=== PATIENT | male | born 1940 | race Caucasian/White ===

== ENCOUNTER 2016-05-02 07:51 | Inpatient (IN) | payer MEDICARE ==
--- NOTE | 2016-05-02 08:14 | ER Document Report ---
ED Syncope and Near Syncope - General Mode of Arrival: Medic Information source: Patient TRAVEL OUTSIDE OF THE [place] IN LAST 30 DAYS: No - HPI Patient complains to provider of: Fainting Symptoms prior to episode: None Current symptoms: None/feels back to normal <LIZ BLACK - Last Filed: 05/02/16 13:12> <JOELLEN AGRAWAL - Last Filed: 05/02/16 13:45> - General Chief Complaint: Low Blood Sugar Stated Complaint: POSSIBLE SYNCOPE Time Seen by Provider: 05/02/16 08:03 Notes: Patient is a 75 year old male that presents to the emergency department today with complaints of "passing out" multiple times prior to arrival. Patient states he is "sitting on his big chair" usually when this happens. Patient states that he "blacks out" and does not remember anything that occurs during these episodes. Patient is on xarelto. Patient adds that he has been having frequent episodes of diarrhea and vomiting recently. Patient denies a history of any seizure disorders. (LIZ BLACK) - Related Data Allergies/Adverse Reactions: No Known Allergies Allergy (Verified 01/13/14 23:37) Past Medical History - General Information source: Patient, [facility] Records - Social History Smoking Status: Unknown if Ever Smoked Cigarette use (# per day): No Frequency of alcohol use: None Drug Abuse: None Lives with: Alone Family History: Other - Past Medical History Cardiac Medical History: Reports: Hx Atrial Fibrillation, Hx Congestive Heart Failure, Hx Coronary Artery Disease, Hx Heart Attack - Last one 3-4 years ago, Hx Hypercholesterolemia, Hx Hypertension Pulmonary Medical History: Reports: Hx COPD Neurological Medical History: Reports: Hx Cerebrovascular Accident Endocrine Medical History: Reports: Hx Diabetes Mellitus Type 2 Musculoskeltal Medical History: Reports Hx Arthritis Past Surgical History: Reports: Hx Cardiac Catheterization - stent, Hx Cardiac Surgery - open heart, Hx Coronary Artery Bypass Graft - Immunizations Hx Diphtheria, Pertussis, Tetanus Vaccination: Yes Hx Pneumococcal Vaccination: 05/01/09 <LIZ BLACK - Last Filed: 05/02/16 13:12> Review of Systems - Review of Systems Constitutional: No symptoms reported EENT: No symptoms reported Cardiovascular: See HPI, Syncope Respiratory: No symptoms reported Gastrointestinal: See HPI, Diarrhea, Vomiting Genitourinary: No symptoms reported Male Genitourinary: No symptoms reported Musculoskeletal: No symptoms reported Skin: No symptoms reported Hematologic/Lymphatic: No symptoms reported Neurological/Psychological: denies: Seizure -: Yes All other systems reviewed and negative <SOFIALIZ - Last Filed: 05/02/16 13:12> Physical Exam - General General appearance: Appears well, Alert In distress: None - HEENT Head: Normocephalic, Atraumatic Eyes: Normal - Respiratory Respiratory status: No respiratory distress Chest status: Nontender Breath sounds: Normal - Cardiovascular Rhythm: Regular Heart sounds: Normal auscultation Murmur: No - Abdominal Inspection: Normal Distension: No distension - Rectal Tenderness: No Stool: See lab result, Other - no gross blood Hemorrhoids: External - 6 oclock position - Extremities General upper extremity: Normal inspection, Nontender, Normal ROM. No: Edema General lower extremity: Normal inspection, Nontender, Normal ROM. No: Edema - Neurological Neuro grossly intact: Yes Cognition: Normal Orientation: AAOx4 - Psychological Associated symptoms: Normal affect, Normal mood - Skin Skin Temperature: Warm Skin Moisture: Dry Skin Color: Normal <JERROD BLACKON - Last Filed: 05/02/16 13:12> Course - Laboratory Result Diagrams: 05/02/16 08:59 05/02/16 08:59 <JERROD BLACKON - Last Filed: 05/02/16 13:12> - Laboratory Result Diagrams: 05/02/16 08:59 05/02/16 08:59 <JOELLEN AGRAWAL - Last Filed: 05/02/16 13:45> - Re-evaluation Re-evalutation: 05/02/16 13:42 I personally performed the services described in the documentation, reviewed and edited the documentation which was dictated to my scribe in my presence, and it accurately records my words and actions. Patient presented see marked department via EMS with the chief complaint of syncope. Patient states is primarily in a chair most of the time lives by himself. He says that nausea vomiting and diarrhea for the past couple days he said he'll just be sitting there and he'll have a passing out episode wake up in the chair he has not fallen to the ground denies any headache neck pain chest pain shortness of breath abdominal pain or flank pain on examination he is actually alert and oriented 3 however his chemistry came back with a blood glucose of 31 given amp of D50. Patient denies any neurological deficits no acute clinical concerns for [place] PE or dissection. He does have acute renal failure dehydration and urinary tract infection for which she was given Rocephin IV fluids. Patient is in stable A. fib no strokelike symptoms or cardiac event noted currently. Patient edited the hospital further assessment and evaluation (JOELLEN AGRAWAL) - Vital Signs Vital signs: Temp Pulse Resp BP Pulse Ox 14 107/87 H 100 05/02/16 10:01 05/02/16 10:01 05/02/16 10:01 (JOELLEN AGRAWAL) - Laboratory Laboratory results interpreted by me: 05/02/16 05/02/16 05/02/16 08:59 08:59 10:40 RBC 3.85 L Hgb 12.4 L Hct 36.9 L RDW 17.8 H Seg Neutrophils % 79.8 H Lymphocytes % 11.2 L Sodium 145.1 H Potassium 3.1 L BUN 76 H Creatinine 2.40 H Est GFR ( Amer) 32 L Est GFR (Non-Af Amer) 27 L Glucose 38 L* Creatine Kinase 228 H Urine Blood SMALL H Ur Leukocyte Esterase LARGE H (JOELLEN AGRAWAL) Critical Care Note - Critical Care Note Total time excluding time spent on procedures (mins): 45 <JOELLEN AGRAWAL - Last Filed: 05/02/16 13:45> Discharge <LIZ BLACK - Last Filed: 05/02/16 13:12> - Discharge Admitting Provider: Hospitalist Unit Admitted: Telemetry <JOELLEN AGRAWAL - Last Filed: 05/02/16 13:45> - Discharge Clinical Impression: Syncopal episodes Qualifiers: Syncope type: unspecified Qualified Code(s): R55 - Syncope and collapse Acute renal failure Qualifiers: Acute renal failure type: unspecified Qualified Code(s): N17.9 - Acute kidney failure, unspecified UTI (urinary tract infection) Qualifiers: Urinary tract infection type: site unspecified Hematuria presence: without hematuria Qualified Code(s): N39.0 - Urinary tract infection, site not specified Condition: Stable Disposition: ADMITTED OBSERVATION Referrals: ML MARTINI MD [Primary Care Provider] - Follow up as needed Scribe Documentation - Scribe Written by Scribe:: Francoise Gorman, [id number] 05/02/2016 acting as scribe for :: Delfino <LIZ BLACK - Last Filed: 05/02/16 13:12>
[2016-05-02] MEDS ORDERED: NORMAL SALINE 1000 ML 1,000 ML IV ONE (08:35)
[2016-05-02 09:12] LABS: ABSOLUTE BASOPHILS # (AUTO) 0.1 10^3/uL (0.0-0.2); ABSOLUTE EOSINOPHILS # (AUTO) 0.1 10^3/uL (0.0-0.6); ABSOLUTE MONOCYTES (AUTO) 0.7 10^3/uL (0.1-1.4); ABSOLUTE NEUT (AUTO) 7.2 10^3/uL (1.7-8.2); BASOPHILS % (AUTO) 0.7 % (0-2); EOSINOPHILS % (AUTO) 0.7 % (0-6); HEMATOCRIT 36.9 % (37.9-51.0); HEMOGLOBIN 12.4 g/dL (13.5-17.0); HGB HCT DIFFERENCE 0.3; LYMPHOCYTES % (AUTO) 11.2 % (13-45); MEAN CORPUSCULAR HEMOGLOBIN 32.3 pg (27.0-33.4); MEAN CORPUSCULAR HGB CONC 33.7 g/dL (32.0-36.0); MEAN CORPUSCULAR VOLUME 96 fl (80-97); MONOCYTES % (AUTO) 7.6 % (3-13); RED BLOOD COUNT 3.85 10^6/uL (4.35-5.55); RED CELL DISTRIBUTION WIDTH 17.8 % (11.5-14.0); SEGMENTED NEUTROPHILS % (AUTO) 79.8 % (42-78)
--- NOTE | 2016-05-02 09:18 | EKG REPORT ---
SEVERITY:- ABNORMAL ECG - ATRIAL FIBRILLATION NONSPECIFIC INTRAVENTRICULAR CONDUCTION DELAY PROBABLE INFERIOR INFARCT, AGE INDETERMINATE : Confirmed by: Sruthi Elise 02-May-2016 09:18:38
[2016-05-02 09:36] LABS: ANION GAP 18 (5-19); BLOOD UREA NITROGEN 76 mg/dL (7-20); CALCIUM 8.7 mg/dL (8.4-10.2); CARBON DIOXIDE 24 mmol/L (22-30); CHLORIDE 103 mmol/L (98-107); CREATINE KINASE 228 U/L (55-170); POTASSIUM 3.1 mmol/L (3.6-5.0); SODIUM 145.1 mmol/L (137-145)
[2016-05-02 09:47] LABS: CREATINE KINASE MB 4.55 ng/mL (<4.55)
[2016-05-02 09:56] LABS: TROPONIN I 0.096 ng/mL
[2016-05-02 09:57] LABS: GLUCOSE 38 mg/dL (75-110)
[2016-05-02] MEDS ORDERED: DEXTROSE 50%-WATER 25 GM/50 ML DISP.SYRIN IV ONE ×2 (09:57→09:58)
[2016-05-02 10:55] LABS: APPEARANCE,URINE SLIGHTLY-CLOUDY; BILIRUBIN,URINE NEGATIVE (NEGATIVE); GLUCOSE, URINE NEGATIVE (NEGATIVE); KETONES,URINE NEGATIVE (NEGATIVE); LEUKOCYTE ESTERASE,URINE LARGE (NEGATIVE); NITRITE,URINE NEGATIVE (NEGATIVE); PROTEIN,URINE NEGATIVE (NEGATIVE); URINE SPECIFIC GRAVITY 1.011; UROBILINOGEN,URINE NEGATIVE mg/dL (<2.0)
[2016-05-02] MEDS ORDERED: CEFTRIAXONE INJ 1000 MG VIAL IM ONE (12:50)
[2016-05-02] MEDS ORDERED: DEXTROSE 40% GEL 15 GM TUBE PO PRN ×2 (13:43)
[2016-05-02] MEDS ORDERED: DEXTROSE 50%-WATER 25 GM/50 ML DISP.SYRIN IV PRN ×2 (13:43)
[2016-05-02] MEDS ORDERED: GLUCAGON,HUMAN RECOMB 1 MG INJ IM PRN (13:43)
[2016-05-02 15:05] LABS: ANION GAP 17 (5-19); BLOOD UREA NITROGEN 73 mg/dL (7-20); CALCIUM 8.4 mg/dL (8.4-10.2); CARBON DIOXIDE 24 mmol/L (22-30); CHLORIDE 104 mmol/L (98-107); CREATININE RESULT 2.15 mg/dL (0.52-1.25); MAGNESIUM 2.3 mg/dL (1.6-2.3); SODIUM 144.6 mmol/L (137-145)
[2016-05-02 15:18] LABS: GLUCOSE 36 mg/dL (75-110); POTASSIUM 2.9 mmol/L (3.6-5.0)
[2016-05-02] MEDS ORDERED: POTASSI CL 40 MEQ/D5-1/2NS 1L 1,000 ML IV PRN (16:09)
--- NOTE | 2016-05-02 17:14 | PDOC H&P ---
History of Present Illness Admission Date/PCP: 05/02/16 13:54 Joao REECE Patient complains of: Syncope History of Present Illness: LINDA WILLETT is a 75 year old male past medical history of non-insulin -dependent diabetes mellitus type II that presents to the emergency department today with complaints of "passing out" multiple times since Monday. According to the patient on Monday he had several episodes of watery diarrhea. After this he became profoundly weak. Patient stated that he had taken all of his medications as prescribed since that time. The patient states that he has had numerous episodes of complete loss of consciousness since then. Patient states he is "sitting on his big chair" usually when this happens. Patient states that he "blacks out" and does not remember anything that occurs during these episodes. Patient is on xarelto. Patient denies a history of any seizure disorder. Patient is on glipizide for diabetes and has continued to take this in spite of not having much oral intake in the last couple of days due to upset stomach. The patient was referred to the hospitalists for observation and management. Patient denies any recent change in his medications. MEDICATIONS: The medications listed in this document may have been auto- populated from previous contact and may not been verified or reconciled. This may not be an accurate reflection of the patient's home medication(s); however, authors are unable to edit or delete the medications listed in this document as "home medications". 05/02/16 05/02/16 08:59 08:59 Hgb 12.4 L Sodium 145.1 H Potassium 3.1 L Creatinine 2.40 H Glucose 38 L* 05/02/16 10:40 Urine Culture - Pending Clean Catch Midstream Past Medical History Cardiac Medical History: Reports: Atrial Fibrillation, Congestive Heart Failure - Systolic heart failure with a EF of 35%, Coronary Artery Disease, Myocardial Infarction - Last one 3-4 years ago, Hyperlipidema, Hypertension Pulmonary Medical History: Reports: Chronic Obstructive Pulmonary Disease (COPD) Neurological Medical History: Reports: Ischemic CVA Endocrine Medical History: Reports: Diabetes Mellitus Type 2 Renal/ Medical History: Reports: Chronic Kidney Disease Musculoskeltal Medical History: Reports: Arthritis Hematology: Reports: Anemia - Chronic disease Past Surgical History Past Surgical History: Reports: Cardiac Catheterization - stent 2009, Coronary Artery Bypass Graft, Orthopedic Surgery - Hand and wrist surgery Social History Information Source: Patient Occupation: Retired Lives with: Alone - Smoking Status: Former Smoker Frequency of Alcohol Use: None Hx Recreational Drug Use: No Hx Prescription Drug Abuse: No - Advance Directive Resuscitation Status: Full Code Surrogate healthcare decision maker:: Patient's surrogate decision maker is his friend and transactional attorney. Family History Family History: Reviewed & Not Pertinent, CAD, Other Parental Family History Reviewed: Yes Children Family History Reviewed: NA Sibling(s) Family History Reviewed.: NA Medication/Allergy Home Medications: Fluticasone/Salmeterol [Advair 250-50 Diskus 14 Dose/Diskus] 1 inh IH Q12H #1 03/11/13 Dutasteride [Avodart] 0.5 mg PO QHS 07/14/13 Fluticasone Propionate [Flonase] 2 spray NS DAILY 07/14/13 Gabapentin [Neurontin 300 mg Capsule] 300 mg PO Q12 07/14/13 Glipizide [Glucotrol 5 mg Tablet] 5 mg PO DAILY 07/14/13 Magnesium Oxide [Mag-Ox 400 mg Tablet] 800 mg PO DAILY 07/14/13 Sodium Bicarbonate [Sodium Bicarbonate 650 mg Tablet] 650 mg PO TID 07/14/13 Metoprolol Tartrate [Lopressor 50 mg Tablet] 50 mg PO BID 09/30/13 Fluticasone Propionate [Flonase] 1 spray NASL DAILY 01/13/14 Paroxetine HCl [Paxil] 10 mg PO DAILY 01/13/14 Ipratropium/Albuterol Sulfate [Combivent Respimat 4 gm Mdi] 1 puff IH BID Aspirin 81 mg PO DAILY PRN #1 pkg 01/15/14 Lisinopril [Prinivil 10 mg Tablet] 10 mg PO DAILY #0 tablet 01/15/14 Amox Tr/Potassium Clavulanate [Augmentin "500" Tablet] 1 tab PO Q8 #21 tablet 09/15/14 Ferrous Sulfate [Feosol 325 mg Tablet] 325 mg PO DAILY #30 tablet 09/15/14 Furosemide [Lasix] 40 mg PO BID #0 09/15/14 Lansoprazole [Prevacid 30 mg Odt Tablet] 30 mg PO DAILY #30 tab.rap.dr 09/15/14 Potassium Chloride [Klor-Con 10 Meq Tablet.sa] 20 meq PO DAILY #60 tablet.sa Allergies/Adverse Reactions: No Known Allergies Allergy (Verified 01/13/14 23:37) Review of Systems Constitutional: ABSENT: chills, fever(s), headache(s), weight gain, weight loss Eyes: ABSENT: visual disturbances Ears: ABSENT: hearing changes Cardiovascular: ABSENT: chest pain, dyspnea on exertion, edema, orthropnea, palpitations Respiratory: ABSENT: cough, hemoptysis Gastrointestinal: PRESENT: diarrhea, nausea. ABSENT: abdominal pain, constipation, hematemesis, hematochezia, vomiting Genitourinary: ABSENT: dysuria, hematuria Musculoskeletal: ABSENT: joint swelling Integumentary: ABSENT: rash, wounds Neurological: PRESENT: focal weakness, syncope. ABSENT: abnormal gait, abnormal speech, confusion, dizziness Psychiatric: ABSENT: anxiety, depression, homidical ideation, suicidal ideation Endocrine: ABSENT: cold intolerance, heat intolerance, polydipsia, polyuria Hematologic/Lymphatic: ABSENT: easy bleeding, easy bruising Physical Exam Vital Signs: Temp Pulse Resp BP Pulse Ox 14 107/87 H 100 05/02/16 10:01 05/02/16 10:01 05/02/16 10:01 General appearance: PRESENT: no acute distress, cooperative, obese, well- developed Head exam: PRESENT: atraumatic, normocephalic Eye exam: PRESENT: conjunctiva pink, EOMI, PERRLA. ABSENT: scleral icterus Ear exam: PRESENT: normal external ear exam Mouth exam: PRESENT: moist, tongue midline Neck exam: ABSENT: carotid bruit, JVD, lymphadenopathy, thyromegaly Respiratory exam: PRESENT: clear to auscultation luis m. ABSENT: rales, rhonchi, wheezes Cardiovascular exam: PRESENT: RRR. ABSENT: diastolic murmur, rubs, systolic murmur Pulses: PRESENT: normal dorsalis pedis pul Vascular exam: PRESENT: normal capillary refill GI/Abdominal exam: PRESENT: normal bowel sounds, soft. ABSENT: distended, guarding, mass, organolmegaly, rebound, tenderness Rectal exam: PRESENT: deferred Extremities exam: PRESENT: full ROM. ABSENT: calf tenderness, clubbing, pedal edema Neurological exam: PRESENT: alert, awake, oriented to person, oriented to place , oriented to time, oriented to situation, CN II-XII grossly intact. ABSENT: motor sensory deficit Psychiatric exam: PRESENT: appropriate affect, normal mood. ABSENT: homicidal ideation, suicidal ideation Skin exam: PRESENT: dry, intact, warm. ABSENT: cyanosis, rash Results Laboratory Results: 05/02/16 14:23 05/02/16 14:23 Sodium 144.6 Potassium 2.9 L* Chloride 104 Carbon Dioxide 24 Anion Gap 17 BUN 73 H Creatinine 2.15 H Est GFR ( Amer) 37 L Est GFR (Non-Af Amer) 30 L Glucose 36 L* Calcium 8.4 Magnesium 2.3 Impressions: Chest X-Ray 05/02/16 08:35 IMPRESSION: Cardiomegaly. No acute consolidations are identified. Head CT 05/02/16 13:24 IMPRESSION: MILD CHRONIC CHANGES OF ATROPHY AND MICROVASCULAR ISCHEMIA. NO ACUTE PROCESS. Assessment & Plan - Diagnosis (1) Hypoglycemia associated with type 2 diabetes mellitus Is this a current diagnosis for this admission?: YesPlan: Have started the patient on D5 and a half and will repeat glucose in one hour. It appears the patient is on glipizide at home currently awaiting med reconciliation. Hold all oral hypoglycemics at this time and feed the patient. 05/02/16 05/02/16 05/02/16 08:59 14:23 15:50 Glucose 38 L* 36 L* POC Glucose 122 H 05/02/16 13:43 AccuCheck [RC] (2) Syncopal episodes Qualifiers: Syncope type: unspecified Qualified Code(s): R55 - Syncope and collapse Is this a current diagnosis for this admission?: YesPlan: Secondary to #1. (3) UTI (urinary tract infection) Qualifiers: Urinary tract infection type: site unspecified Hematuria presence: without hematuria Qualified Code(s): N39.0 - Urinary tract infection, site not specified Is this a current diagnosis for this admission?: YesPlan: The patient has a history of this. Urinalysis is suggestive of UTI. Received a dose of Rocephin in the ER will give Rocephin and await culture. (4) Acute renal failure Qualifiers: Acute renal failure type: with other specified pathological lesion Qualified Code(s): N17.8 - Other acute kidney failure Is this a current diagnosis for this admission?: YesPlan: Most likely prerenal azotemia due to dehydration. It appears the patient's baseline creatinine is in the 1.9 range. Will follow-up chemistries since the patient has been hydrated. 11/24/15 05/02/16 10:58 14:23 Creatinine 1.39 H 2.15 H (5) Chronic kidney disease, stage III (moderate) Is this a current diagnosis for this admission?: YesPlan: Baseline creatinine appears to be in the 1.3 range. (6) COPD (chronic obstructive pulmonary disease) Qualifiers: COPD type: unspecified COPD Qualified Code(s): J44.9 - Chronic obstructive pulmonary disease, unspecified Is this a current diagnosis for this admission?: YesPlan: My home meds once reconcilable (7) Coronary artery disease Qualifiers: Coronary Disease-Associated Artery/Lesion type: [place] artery [place] vs. transplanted heart: [place] heart Associated angina: without angina Qualified Code(s): I25.10 - Atherosclerotic heart disease of [place] coronary artery without angina pectoris Is this a current diagnosis for this admission?: YesPlan: Will continue home medications.once reconcilable (8) Hypertension Qualifiers: Hypertension type: essential hypertension Qualified Code(s): I10 - Essential (primary) hypertension Is this a current diagnosis for this admission?: YesPlan: Will continue home medications once reconcilable unless is a ABBY then will hold it. (9) Hypokalemia Is this a current diagnosis for this admission?: YesPlan: Will replete potassium and follow. (10) Paroxysmal atrial fibrillation Is this a current diagnosis for this admission?: YesPlan: According to the patient is actually chronic. He is rate controlled will continue home medications once reconcilable. (11) Anemia of chronic disease Is this a current diagnosis for this admission?: YesPlan: Stable according to previous labs.. (12) Remote history of stroke Is this a current diagnosis for this admission?: No (13) Admission for long-term (current) use of anticoagulants Is this a current diagnosis for this admission?: Yes - Time Time Spent with patient: Time spent on this admission including assessment, plan, physical examination, and patient education is 55 minutes. Time Spent: 50 to 70 Minutes Medications reviewed and adjusted accordingly: Yes Anticipated discharge: Home Within: within 24 hours Disposition: The patient is a full code. Pending patient's symptomatology and diagnostic findings will reevaluate in the a.m.
[2016-05-02 20:39] LABS: ANION GAP 16 (5-19); BLOOD UREA NITROGEN 73 mg/dL (7-20); CARBON DIOXIDE 25 mmol/L (22-30); CHLORIDE 103 mmol/L (98-107); CREATININE RESULT 2.23 mg/dL (0.52-1.25); GLUCOSE 54 mg/dL (75-110); SODIUM 143.8 mmol/L (137-145)
[2016-05-02 20:54] LABS: POTASSIUM 2.9 mmol/L (3.6-5.0)
[2016-05-03] MEDS ORDERED: IPRATROPIUM/ALBUTEROL 120 PUFF/4 GM MDI IH ONE (00:45)
[2016-05-03] MEDS ORDERED: RIVAROXABAN 15 MG TABLET PO ONE (00:45)
[2016-05-03] MEDS ORDERED: FLUTICASONE/SALMETEROL DISKUS 250-50 MCG/DOSE IH ONE ×2 (01:00)
[2016-05-03] MEDS ORDERED: DUTASTERIDE 0.5 MG CAPSULE PO ONE (01:00)
[2016-05-03] MEDS ORDERED: POTASSIUM CHLORIDE 20 MEQ/15 ML UDCUP PO ONE ×2 (02:52→05:30)
[2016-05-03 05:58] LABS: ANION GAP 16 (5-19); BLOOD UREA NITROGEN 68 mg/dL (7-20); CALCIUM 8.8 mg/dL (8.4-10.2); CARBON DIOXIDE 23 mmol/L (22-30); CHLORIDE 103 mmol/L (98-107); CREATININE RESULT 1.74 mg/dL (0.52-1.25); GLUCOSE 170 mg/dL (75-110); POTASSIUM 3.5 mmol/L (3.6-5.0); SODIUM 142.2 mmol/L (137-145)
[2016-05-03] MEDS ORDERED: FLUTICASONE/SALMETEROL DISKUS 250-50 MCG/DOSE IH SCH (08:00)
[2016-05-03] MEDS: CEFTRIAXONE 1 GM/D5W RTU 50 ML IV SCH (09:40)
[2016-05-03] MEDS: FLUTICASONE/SALMETEROL DISKUS 250-50 MCG/DOSE IH SCH ×2 (09:40→22:39)
[2016-05-03] MEDS: IPRATROPIUM/ALBUTEROL 120 PUFF/4 GM MDI IH SCH ×2 (09:41→18:43)
--- NOTE | 2016-05-03 14:35 | PDOC PROGRESS REPORT ---
Subjective Progress Note for:: 05/03/16 Subjective:: Patient states she's feeling a lot better and he is ready to go home He has no chest pain no shortness of breath And is eating well Physical Exam Vital Signs: Temp Pulse Resp BP Pulse Ox 97.7 F 70 14 138/63 H 100 05/03/16 12:51 05/03/16 12:51 05/03/16 12:51 05/03/16 12:51 05/03/16 12:51 Intake & Output 05/02/16 05/03/16 05/04/16 00:59 00:59 00:59 Intake Total 500 Output Total 1470 Balance -970 General appearance: PRESENT: no acute distress, well-developed, well-nourished Head exam: PRESENT: atraumatic, normocephalic Eye exam: PRESENT: conjunctiva pink, EOMI, PERRLA. ABSENT: scleral icterus Ear exam: PRESENT: normal external ear exam Mouth exam: PRESENT: moist, tongue midline Neck exam: ABSENT: carotid bruit, JVD, lymphadenopathy, thyromegaly Respiratory exam: PRESENT: clear to auscultation luis m. ABSENT: rales, rhonchi, wheezes Cardiovascular exam: PRESENT: RRR. ABSENT: diastolic murmur, rubs, systolic murmur Pulses: PRESENT: normal dorsalis pedis pul Vascular exam: PRESENT: normal capillary refill GI/Abdominal exam: PRESENT: normal bowel sounds, soft. ABSENT: distended, guarding, mass, organolmegaly, rebound, tenderness Rectal exam: PRESENT: deferred Extremities exam: PRESENT: full ROM. ABSENT: calf tenderness, clubbing, pedal edema Neurological exam: PRESENT: alert, awake, oriented to person, oriented to place , oriented to time, oriented to situation, CN II-XII grossly intact. ABSENT: motor sensory deficit Psychiatric exam: PRESENT: appropriate affect, normal mood. ABSENT: homicidal ideation, suicidal ideation Skin exam: PRESENT: dry, intact, warm. ABSENT: cyanosis, rash Results Laboratory Results: Labs- All tests 24 hr 05/02/16 05/02/16 05/02/16 07:57 14:23 15:27 Sodium 144.6 Potassium 2.9 L* Chloride 104 Carbon Dioxide 24 Anion Gap 17 BUN 73 H Creatinine 2.15 H Est GFR ( Amer) 37 L Est GFR (Non-Af Amer) 30 L Glucose 36 L* POC Glucose 59 L 33 L* Calcium 8.4 Magnesium 2.3 05/02/16 05/02/16 05/02/16 15:50 16:09 18:13 Sodium Potassium Chloride Carbon Dioxide Anion Gap BUN Creatinine Est GFR ( Amer) Est GFR (Non-Af Amer) Glucose POC Glucose 122 H 65 L 58 L Calcium Magnesium 05/02/16 05/02/16 05/02/16 18:53 20:04 21:22 Sodium 143.8 Potassium 2.9 L* Chloride 103 Carbon Dioxide 25 Anion Gap 16 BUN 73 H Creatinine 2.23 H Est GFR ( Amer) 35 L Est GFR (Non-Af Amer) 29 L Glucose 54 L POC Glucose 81 95 Calcium 8.0 L Magnesium 05/03/16 05/03/16 05/03/16 05:04 06:27 11:40 Sodium 142.2 Potassium 3.5 L Chloride 103 Carbon Dioxide 23 Anion Gap 16 BUN 68 H Creatinine 1.74 H Est GFR ( Amer) 47 L Est GFR (Non-Af Amer) 39 L Glucose 170 H POC Glucose 184 H 237 H Calcium 8.8 Magnesium Impressions: Chest X-Ray 05/02/16 08:35 IMPRESSION: Cardiomegaly. No acute consolidations are identified. Head CT 05/02/16 13:24 IMPRESSION: MILD CHRONIC CHANGES OF ATROPHY AND MICROVASCULAR ISCHEMIA. NO ACUTE PROCESS. Assessment & Plan - Diagnosis (1) Acute renal failure Qualifiers: Acute renal failure type: with other specified pathological lesion Qualified Code(s): N17.8 - Other acute kidney failure Is this a current diagnosis for this admission?: YesPlan: acute on chronic renal failure patient has a baseline CK disease stage III His creatinine that baseline was 1.5 It is now 1.65 We will continue IV fluids. For another 24 hours with half-normal saline and 20 mEq of K (2) Hypoglycemia associated with type 2 diabetes mellitus Is this a current diagnosis for this admission?: YesPlan: It is resolving ;we discontinued D5W infusion We will reevaluate diabetic management (3) Syncopal episodes Qualifiers: Syncope type: unspecified Qualified Code(s): R55 - Syncope and collapse Is this a current diagnosis for this admission?: YesPlan: Secondary to hypovolemia (4) UTI (urinary tract infection) Qualifiers: Urinary tract infection type: site unspecified Hematuria presence: without hematuria Qualified Code(s): N39.0 - Urinary tract infection, site not specified Is this a current diagnosis for this admission?: YesPlan: Gram-negative bacilli in the in the urine culture Identification sensitivity pending Continue ceftriaxone IV (5) Chronic kidney disease, stage III (moderate) Is this a current diagnosis for this admission?: YesPlan: As above - Time Time Spent with patient: Continue present management Patient may be discharged in 24 hours if stable Time Spent with patient: 25-34 minutes
[2016-05-03] MEDS: POTASSI CL 20 MEQ/1/2NS 1L 1,000 ML IV PRN (20:33)
[2016-05-03] MEDS ORDERED: (PENDING PHARMACY ID) (Paroxetine Hcl [Paxil] 10 MG) PO SCH (22:00)
[2016-05-03] MEDS ORDERED: DUTASTERIDE 0.5 MG CAPSULE PO SCH (22:00)
[2016-05-03] MEDS ORDERED: RIVAROXABAN 15 MG TABLET PO SCH (22:00)
[2016-05-03] MEDS ORDERED: PAROXETINE HCL 20 MG TABLET PO SCH (22:00)
[2016-05-03] MEDS: INSULIN LISPRO 100 UNIT/ML 3 ML VIAL SUBCUT PRN (22:39)
[2016-05-04] MEDS: POTASSI CL 20 MEQ/1/2NS 1L 1,000 ML IV PRN (05:55)
[2016-05-04] MEDS: FLUTICASONE/SALMETEROL DISKUS 250-50 MCG/DOSE IH SCH (10:08)
[2016-05-04] MEDS: IPRATROPIUM/ALBUTEROL 120 PUFF/4 GM MDI IH SCH (10:09)
[2016-05-04] MEDS: CEFTRIAXONE 1 GM/D5W RTU 50 ML IV SCH (10:09)
[2016-05-04 12:33] LABS: ANION GAP 16 (5-19); BLOOD UREA NITROGEN 45 mg/dL (7-20); CALCIUM 10.3 mg/dL (8.4-10.2); CARBON DIOXIDE 25 mmol/L (22-30); CHLORIDE 105 mmol/L (98-107); CREATININE RESULT 1.27 mg/dL (0.52-1.25); GLUCOSE 212 mg/dL (75-110); POTASSIUM 3.9 mmol/L (3.6-5.0); SODIUM 145.6 mmol/L (137-145)
[2016-05-04] MEDS: INSULIN LISPRO 100 UNIT/ML 3 ML VIAL SUBCUT PRN (13:14)
--- NOTE | 2016-05-04 13:50 | PDOC DISCHARGE SUMMARY ---
General - Admit/Disc Date/PCP Admission Date/Primary Care Provider: 05/03/16 08:00 Joao REECE Discharge Date: 05/04/16 - Discharge Diagnosis (1) Acute renal failure Is this a current diagnosis for this admission?: YesSummary: Acute on chronic renal failure Patient has baseline CK disease stage III Acute renal failure secondary to dehydration Patient's medications were reevaluated at discharge; we discontinued metolazone (2) Hypoglycemia associated with type 2 diabetes mellitus Is this a current diagnosis for this admission?: YesSummary: Secondary to glipizide, as patient renal failure got worse Patient did have a glucose infusion for 24 hours Glipizide was decreased to 5 mg twice a day at discharge (3) Syncopal episodes Is this a current diagnosis for this admission?: YesSummary: Secondary to orthostatic hypotension secondary to dehydration Patient did not have any syncopal episode during his hospital stay (4) UTI (urinary tract infection) Is this a current diagnosis for this admission?: YesSummary: Urinary infection with Pseudomonas which is lamar sensitive We will discharge the patient on Keflex by mouth (5) Chronic kidney disease, stage III (moderate) Is this a current diagnosis for this admission?: Yes (6) Chronic anticoagulation Is this a current diagnosis for this admission?: YesSummary: With xarelto 15 mg daily at bedtime was continued (7) Chronic atrial fibrillation Is this a current diagnosis for this admission?: YesSummary: Remained rate controlled We decreased metoprolol to 25 mg by mouth twice a day discharge - Additional Information Resuscitation Status: Full Code Discharge Diet: Cardiac, Diabetic Discharge Activity: Activity As Tolerated Home Medications: Fluticasone/Salmeterol [Advair 250-50 Diskus 14 Dose/Diskus] 1 inh IH Q12H #1 03/11/13 Dutasteride [Avodart] 0.5 mg PO QHS 07/14/13 Gabapentin [Neurontin 300 mg Capsule] 300 mg PO Q12 07/14/13 Fluticasone Propionate [Flonase] 2 spray NASL DAILY 01/13/14 Paroxetine HCl [Paxil] 10 mg PO QHS 01/13/14 Ipratropium/Albuterol Sulfate [Combivent Respimat 4 gm Mdi] 1 puff IH BID Aspirin 81 mg PO DAILY PRN #1 pkg 01/15/14 Atorvastatin Calcium [Lipitor 40 mg Tablet] 40 mg PO QHS 05/02/16 Furosemide [Lasix] 40 mg PO DAILY 05/02/16 Lisinopril [Prinivil 10 mg Tablet] 20 mg PO DAILY 05/02/16 Nitroglycerin 0.4 mg SL Q5MP PRN 05/02/16 Rivaroxaban [Xarelto 15 mg Tablet] 15 mg PO QHS 05/02/16 Glipizide [Glucotrol 5 mg Tablet] 5 mg PO BID #30 05/04/16 Metoprolol Tartrate [Lopressor 50 mg Tablet] 25 mg PO BID #0 05/04/16 Potassium Chloride [K-Tab ER] 20 meq PO DAILY #30 tablet.er 05/04/16 History of Present Illness History of Present Illness: LINDA WILLETT is a 75 year old male past medical history of [id number] diabetes mellitus type II that presents to the emergency department today with complaints of "passing out" multiple times since Monday. According to the patient on Monday he had several episodes of watery diarrhea. After this he became profoundly weak. Patient stated that he had taken all of his medications as prescribed since that time. The patient states that he has had numerous episodes of complete loss of consciousness since then. Patient states he is "sitting on his big chair" usually when this happens. Patient states that he "blacks out" and does not remember anything that occurs during these episodes. Patient is on xarelto. Patient denies a history of any seizure disorder. Patient is on glipizide for diabetes and has continued to take this in spite of not having much oral intake in the last couple of days due to upset stomach. The patient was referred to the hospitalists for observation and management. Patient denies any recent change in his medications. Hospital Course Hospital Course: Patient was admitted with dehydration hypokalemia and acute renal failure Patient responded to IV hydration ; replenishment of electrolytes; and D5W infusion His renal function returned to previous His medications were adjusted at time of discharge A CT of the head no contrast was negative on admission Physical Exam Vital Signs: Temp Pulse Resp BP Pulse Ox 97.3 F 94 12 172/77 H 100 05/04/16 11:58 05/04/16 11:58 05/04/16 11:58 05/04/16 11:58 05/04/16 11:58 Intake & Output 05/03/16 05/04/16 05/05/16 00:59 00:59 00:59 Intake Total 1202 500 Output Total 2480 1150 Balance -1278 -650 General appearance: PRESENT: no acute distress, well-developed, well-nourished Head exam: PRESENT: atraumatic, normocephalic Eye exam: PRESENT: conjunctiva pink, EOMI, PERRLA. ABSENT: scleral icterus Ear exam: PRESENT: normal external ear exam Mouth exam: PRESENT: moist, tongue midline Neck exam: ABSENT: carotid bruit, JVD, lymphadenopathy, thyromegaly Respiratory exam: PRESENT: clear to auscultation luis m. ABSENT: rales, rhonchi, wheezes Cardiovascular exam: PRESENT: RRR. ABSENT: diastolic murmur, rubs, systolic murmur Pulses: PRESENT: normal dorsalis pedis pul Vascular exam: PRESENT: normal capillary refill GI/Abdominal exam: PRESENT: normal bowel sounds, soft. ABSENT: distended, guarding, mass, organolmegaly, rebound, tenderness Rectal exam: PRESENT: deferred Extremities exam: PRESENT: full ROM. ABSENT: calf tenderness, clubbing, pedal edema Neurological exam: PRESENT: alert, awake, oriented to person, oriented to place , oriented to time, oriented to situation, CN II-XII grossly intact. ABSENT: motor sensory deficit Psychiatric exam: PRESENT: appropriate affect, normal mood. ABSENT: homicidal ideation, suicidal ideation Skin exam: PRESENT: dry, intact, warm. ABSENT: cyanosis, rash Results Laboratory Results: 05/04/16 12:05 05/04/16 12:05 Sodium 145.6 H Potassium 3.9 Chloride 105 Carbon Dioxide 25 Anion Gap 16 BUN 45 H Creatinine 1.27 H Est GFR ( Amer) > 60 Est GFR (Non-Af Amer) 56 L Glucose 212 H Calcium 10.3 H 05/02/16 08:59 05/04/16 12:05 05/04/16 12:05 Sodium 145.6 H Potassium 3.9 Chloride 105 Carbon Dioxide 25 Anion Gap 16 BUN 45 H Creatinine 1.27 H Est GFR ( Amer) > 60 Est GFR (Non-Af Amer) 56 L Glucose 212 H Calcium 10.3 H 05/02/16 10:40 Clean Catch Midstream Urine Culture - Final Pseudomonas Aeruginosa 05/02/16 05/02/16 08:59 08:59 Creatine Kinase 228 H CK-MB (CK-2) 4.55 Troponin I 0.096 Impressions: Chest X-Ray 05/02/16 08:35 IMPRESSION: Cardiomegaly. No acute consolidations are identified. Head CT 05/02/16 13:24 IMPRESSION: MILD CHRONIC CHANGES OF ATROPHY AND MICROVASCULAR ISCHEMIA. NO ACUTE PROCESS. Plan Discharge Plan: Discharged home with home health and home PT Follow-up with Dr. becerra in one week and Dr. Flores as scheduled
[2016-05-04 14:14] VITALS: BP 131/60
[2016-05-04] MEDS ORDERED: LISINOPRIL 10 MG TABLET PO ONE (14:30)
[2016-05-04] MEDS ORDERED: METOPROLOL TARTRATE 50 MG TABLET PO ONE (14:30)
== END 2016-05-04 16:47 | disposition home or self-care (01) | DRG 683 ==
LOC: ER 07:51 → EH 13:54 → INTOOBSV 13:54 → 4N 16:12 → OBSVTOIN 05-03 08:00
PROVIDERS: ADMIT Family Medicine; ATTEND Family Medicine
DX: N17.8 Other acute kidney failure (principal); N39.0 Urinary tract infection, site not specified; I13.0 Hypertensive heart and chronic kidney disease with heart failure and stage 1 through stage 4 chronic kidney disease, or unspecified chronic kidney disease; I50.20 Unspecified systolic (congestive) heart failure; E87.6 Hypokalemia; E11.649 Type 2 diabetes mellitus with hypoglycemia without coma; I95.1 Orthostatic hypotension; E86.0 Dehydration; B96.5 Pseudomonas (aeruginosa) (mallei) (pseudomallei) as the cause of diseases classified elsewhere; E11.22 Type 2 diabetes mellitus with diabetic chronic kidney disease; N18.3 Chronic kidney disease, stage 3 (moderate); I48.2 Chronic atrial fibrillation; I25.10 Atherosclerotic heart disease of native coronary artery without angina pectoris; I25.2 Old myocardial infarction; J44.9 Chronic obstructive pulmonary disease, unspecified; M19.90 Unspecified osteoarthritis, unspecified site; D63.1 Anemia in chronic kidney disease; Z79.01 Long term (current) use of anticoagulants; Z79.82 Long term (current) use of aspirin; Z79.899 Other long term (current) drug therapy; Z95.1 Presence of aortocoronary bypass graft; Z95.5 Presence of coronary angioplasty implant and graft; Z60.2 Problems related to living alone; Z87.891 Personal history of nicotine dependence; Z86.73 Personal history of transient ischemic attack (TIA), and cerebral infarction without residual deficits; Z82.49 Family history of ischemic heart disease and other diseases of the circulatory system
CPT/HCPCS: 36415; 70450; 71020; 80048; 81001; 82550; 82553; 82962; 83735; 84484; 85025; 87086; 87088; 87186; 93005; 93010; 96361; 96372; 96374; 99291; G0378; G8978-GP; G8979-GP; G8987-GO; G8988-GO; G8989-GO; J0696; J1815; J3480; J3490; J7030

== ENCOUNTER → 2016-07-13 | Outpatient (CLI) | payer MEDICARE ==
[2016-07-13 13:42] LABS: HEMATOCRIT 34.2 % (37.9-51.0); HEMOGLOBIN 11.4 g/dL (13.5-17.0); MEAN CORPUSCULAR HEMOGLOBIN 31.7 pg (27.0-33.4); MEAN CORPUSCULAR HGB CONC 33.4 g/dL (32.0-36.0); MEAN CORPUSCULAR VOLUME 95 fl (80-97); RED BLOOD COUNT 3.61 10^6/uL (4.35-5.55); RED CELL DISTRIBUTION WIDTH 17.1 % (11.5-14.0); WHITE BLOOD COUNT 6.5 10^3/uL (4.0-10.5)
[2016-07-13 14:07] LABS: ANION GAP 12 (5-19); BLOOD UREA NITROGEN 33 mg/dL (7-20); CALCIUM 10.4 mg/dL (8.4-10.2); CARBON DIOXIDE 24 mmol/L (22-30); CHLORIDE 112 mmol/L (98-107); CREATININE RESULT 1.32 mg/dL (0.52-1.25); GLUCOSE 123 mg/dL (75-110); MAGNESIUM 2.1 mg/dL (1.6-2.3); PHOSPHORUS 3.3 mg/dL (2.5-4.5); POTASSIUM 4.2 mmol/L (3.6-5.0); SODIUM 147.7 mmol/L (137-145)
== END ==
LOC: OD 12:26
PROVIDERS: ATTEND Internal Medicine Nephrology
DX: I12.9 Hypertensive chronic kidney disease with stage 1 through stage 4 chronic kidney disease, or unspecified chronic kidney disease (principal); N18.3 Chronic kidney disease, stage 3 (moderate); E11.9 Type 2 diabetes mellitus without complications; E83.42 Hypomagnesemia; D64.9 Anemia, unspecified
CPT/HCPCS: 36415; 80048; 83735; 83970; 84100; 85027

== ENCOUNTER → 2016-07-18 | Outpatient (CLI) | payer MEDICARE ==
[2016-07-18 11:42] LABS: ANION GAP 16 (5-19); BLOOD UREA NITROGEN 25 mg/dL (7-20); CALCIUM 10.5 mg/dL (8.4-10.2); CARBON DIOXIDE 26 mmol/L (22-30); CHLORIDE 107 mmol/L (98-107); CREATININE RESULT 1.15 mg/dL (0.52-1.25); GLUCOSE 126 mg/dL (75-110); POTASSIUM 3.5 mmol/L (3.6-5.0); SODIUM 149.1 mmol/L (137-145)
== END ==
LOC: OD 10:27
PROVIDERS: ATTEND Internal Medicine Nephrology
DX: E87.1 Hypo-osmolality and hyponatremia (principal)
CPT/HCPCS: 36415; 80048

== ENCOUNTER 2016-07-22 11:16 | Inpatient (IN) | payer MEDICARE, MEDICAID ==
[2016-07-22] MEDS ORDERED: FENTANYL CITRATE INJ/PF 100 MCG/2 ML AMPUL ONE (11:32)
[2016-07-22] MEDS ORDERED: FENTANYL CITRATE INJ/PF 100 MCG/2 ML AMPUL IV ONE ×2 (11:33→11:34)
[2016-07-22] MEDS ORDERED: ETOMIDATE INJ/PF 20 MG/10 ML SDV IV ONE (11:37)
[2016-07-22] MEDS ORDERED: ROCURONIUM BROMIDE INJ 50 MG/5 ML VIAL IV ONE ×2 (11:37→14:43)
--- NOTE | 2016-07-22 11:41 | ER Document Report ---
ED Respiratory Problem - General Chief Complaint: Shortness Of Breath Stated Complaint: WEAKNESS Notes: Patient is a 75-year-old male, past medical history CHF, COPD (on home 2L O2), presents by EMS after he fell overnight and could not get up. He was covered in feces. He was satting 77% on room air and he was placed on CPAP with improvement of his oxygenation to 86%. Patient is AAO 3 and is not complaining of any pain. Told him that due to his hypoxia, intubation is prudent at this time. He agrees to intubation. TRAVEL OUTSIDE OF THE [place] IN LAST 30 DAYS: No - Related Data Allergies/Adverse Reactions: No Known Allergies Allergy (Verified 07/22/16 12:46) Past Medical History - General Information source: Patient, Emergency Med Personnel - Social History Smoking Status: Unknown if Ever Smoked Family History: Reviewed & Not Pertinent, CAD, Other - Past Medical History Cardiac Medical History: Reports: Hx Atrial Fibrillation, Hx Congestive Heart Failure - Systolic heart failure with a EF of 35%, Hx Coronary Artery Disease, Hx Heart Attack - Last one 3-4 years ago, Hx Hypercholesterolemia, Hx Hypertension Pulmonary Medical History: Reports: Hx COPD Denies: Hx Asthma, Hx Bronchitis, Hx Pneumonia Neurological Medical History: Reports: Hx Cerebrovascular Accident. Denies: Hx Seizures Endocrine Medical History: Reports: Hx Diabetes Mellitus Type 2 Musculoskeltal Medical History: Reports Hx Arthritis Psychiatric Medical History: Denies: Hx Depression Past Surgical History: Reports: Hx Cardiac Catheterization - stent 2009, Hx Cardiac Surgery - open heart, Hx Coronary Artery Bypass Graft, Hx Orthopedic Surgery - Hand and wrist surgery - Immunizations Hx Diphtheria, Pertussis, Tetanus Vaccination: Yes Hx Pneumococcal Vaccination: 05/01/09 Review of Systems - Review of Systems Notes: REVIEW OF SYSTEMS: CONSTITUTIONAL: -fevers, -chills EENT: -eye pain, -difficulty swallowing, -nasal congestion CARDIOVASCULAR:-chest pain, -syncope. RESPIRATORY: -cough, +SOB GASTROINTESTINAL: -abdominal pain, - nausea, -vomiting, -diarrhea GENITOURINARY: -dysuria, -hematuria MUSCULOSKELETAL: -back pain, -neck pain SKIN: -rash or skin lesions. HEMATOLOGIC: -easy bruising or bleeding. LYMPHATIC: -swollen, enlarged glands. NEUROLOGICAL: -altered mental status or loss of consciousness, -headache, - neurologic symptoms PSYCHIATRIC: -anxiety, -depression. ALL OTHER SYSTEMS REVIEWED AND NEGATIVE. Physical Exam - Notes Notes: PHYSICAL EXAMINATION: GENERAL: Moderate respiratory distress. HEAD: Atraumatic, normocephalic. EYES: Pupils equal round and reactive to light, extraocular movements intact, sclera anicteric, conjunctiva are normal. ENT: nares patent, oropharynx clear without exudates. Moist mucous membranes. NECK: Normal range of motion, supple without lymphadenopathy LUNGS: Coarse breath sounds and crackles bilateral lungs, tachypnea HEART: Regular rate and rhythm without murmurs ABDOMEN: Soft, nontender, normoactive bowel sounds. No guarding, no rebound. No masses appreciated. EXTREMITIES: Normal range of motion, no pitting or edema. No cyanosis. NEUROLOGICAL: Cranial nerves grossly intact. Normal sensory, motor, and reflex exams. PSYCH: Normal mood, normal affect. SKIN: Warm, Dry, normal turgor, no rashes or lesions noted. Course - Re-evaluation Re-evalutation: Patient intubated immediately for hypoxia and tachypnea that is not improved by CPAP by EMS. Patient states she is not having chest pain or any other pain prior to the intubation. X-ray shows left lower lobe infiltrate and ETT to 7 cm above mal. ETT advanced 3 cm to 25 at the lip. His creatinine is elevated to 3.5 from baseline around 2. He also has a first troponin of 0.5, but no ST elevations. His troponins have been 0.9 in the past. Suspect that this may be due to his rhabdo and CRAIG. Patient sedated and resting comfortably after one dose of fentanyl. Spoke to Dr. Khan and he has accepted patient at 1245. - Laboratory Result Diagrams: 07/22/16 11:25 07/22/16 11:25 Laboratory results interpreted by me: 07/22/16 07/22/16 07/22/16 11:25 11:25 11:25 WBC 17.7 H RBC 3.71 L Hgb 11.5 L Hct 34.6 L RDW 17.4 H Seg Neuts % (Manual) 93 H Lymphocytes % (Manual) 2 L Monocytes % (Manual) 0 L Abs Neuts (Manual) 17.3 H Abs Lymphs (Manual) 0.4 L Abs Monocytes (Manual) 0.0 L Potassium 3.1 L Anion Gap 21 H BUN 65 H Creatinine 3.50 H Est GFR ( Amer) 21 L Est GFR (Non-Af Amer) 17 L Total Bilirubin 2.4 H Direct Bilirubin 1.6 H AST 80 H Creatine Kinase 1569 H NT-Pro-B Natriuret Pep 25341 H - Diagnostic Test Radiology reviewed: Image reviewed, Reports reviewed - EKG Interpretation by Me EKG shows normal: QRS Complexes Rate: Tachycardia Rhythm: A.Fib [place]/QRS: IVCD Procedures - Intubation Orotracheal Airway evaluation: Normal anatomy Mallampati Classification: Class 3 Medications: Etomidate, Other - Rocuronium Intubation method: Orotracheal Blade type: Oumou Blade size: 4 Equipment used: Glidescope ETT size: 8.0 ETT secured at: Teeth ETT secured at (cm): 24 Breath Sounds after Intubation: Equal End tidal CO2 confirmed: Yes Ventilator settings: AC Tidal volume: 550 FiO2: 100 Respirations: 14 PEEP: 10 Post Intubation Xray: Yes - Ett 7 cm above mal, ETT advanced 3 cm Intubation Complications: No complications Critical Care Note - Critical Care Note Total time excluding time spent on procedures (mins): 45 Discharge - Discharge Clinical Impression: Acute respiratory failure with hypoxia, Hypokalemia, CRAIG (acute kidney injury) Pneumonia Qualifiers: Pneumonia type: due to unspecified organism Laterality: left Lung location: lower lobe of lung Qualified Code(s): J18.1 - Lobar pneumonia, unspecified organism Rhabdomyolysis Qualifiers: Rhabdomyolysis type: non-traumatic Qualified Code(s): M62.82 - Rhabdomyolysis Condition: Critical Disposition: ADMITTED INPATIENT [facility] Ad[facility]: ICU
[2016-07-22 11:50] LABS: HEMATOCRIT 34.6 % (37.9-51.0); HEMOGLOBIN 11.5 g/dL (13.5-17.0); HGB HCT DIFFERENCE -0.1; MEAN CORPUSCULAR HGB CONC 33.2 g/dL (32.0-36.0); MEAN CORPUSCULAR VOLUME 93 fl (80-97); RED BLOOD COUNT 3.71 10^6/uL (4.35-5.55); RED CELL DISTRIBUTION WIDTH 17.4 % (11.5-14.0); WHITE BLOOD COUNT 17.7 10^3/uL (4.0-10.5)
[2016-07-22] MEDS ORDERED: NORMAL SALINE 1000 ML 1,000 ML IV ONE ×2 (12:02→12:16)
[2016-07-22] MEDS ORDERED: AZITHROMYCIN INJ 500 MG VIAL IV ONE (12:09)
[2016-07-22] MEDS ORDERED: CEFTRIAXONE 1 GM/D5W RTU 50 ML IV ONE (12:09)
[2016-07-22 12:11] LABS: ALANINE AMINOTRANSFERASE 36 U/L (21-72); ALBUMIN 3.7 g/dL (3.5-5.0); ALKALINE PHOSPHATASE 98 U/L (38-126); ASPARTATE AMINO TRANSFERASE 80 U/L (17-59); BAND NEUTROPHILS % (MANUAL) 5 % (3-5); BASOPHILS % (MANUAL) 0 % (0-2); BILIRUBIN,DIRECT 1.6 mg/dL (0.0-0.4); BILIRUBIN,TOTAL 2.4 mg/dL (0.2-1.3); BLOOD UREA NITROGEN 65 mg/dL (7-20); CALCIUM 9.7 mg/dL (8.4-10.2); CARBON DIOXIDE 22 mmol/L (22-30); CHLORIDE 102 mmol/L (98-107); CREATINE KINASE 1569 U/L (55-170); EOSINOPHILS % (MANUAL) 0 % (0-6); GLUCOSE 80 mg/dL (75-110); LIPASE 40.5 U/L (23-300); LYMPHOCYTES % (MANUAL) 2 % (13-45); POTASSIUM 3.1 mmol/L (3.6-5.0); TOTAL CELLS COUNTED 100; TOTAL PROTEIN 6.6 g/dL (6.3-8.2)
[2016-07-22 12:12] LABS: ANISOCYTOSIS 1+; BURR CELLS 2+; OVALOCYTES 1+; POIKILOCYTOSIS 2+; TOXIC GRANULATION 1+
[2016-07-22 12:13] LABS: ANION GAP 21 (5-19)
[2016-07-22 12:31] LABS: TROPONIN I 0.521 ng/mL
[2016-07-22 12:55] LABS: VENOUS BLOOD BASE EXCESS -6.6 mmol/L; VENOUS BLOOD HCO3 22.1 mmol/L (20-32); VENOUS BLOOD PCO2 56.2 mmHg (35-63); VENOUS BLOOD PH 7.21 (7.30-7.42)
[2016-07-22] MEDS ORDERED: DEXTROSE 50%-WATER 25 GM/50 ML DISP.SYRIN IV PRN ×2 (13:25)
[2016-07-22] MEDS ORDERED: DEXTROSE 40% GEL 15 GM TUBE PO PRN ×2 (13:25)
[2016-07-22] MEDS ORDERED: GLUCAGON,HUMAN RECOMB 1 MG INJ IM PRN (13:25)
[2016-07-22] MEDS ORDERED: INSULIN LISPRO 100 UNIT/ML 3 ML VIAL SUBCUT PRN (13:30)
[2016-07-22] MEDS ORDERED: ACETAMINOPHEN 325 MG TABLET PO PRN (13:30)
[2016-07-22] MEDS ORDERED: IPRATROPIUM/ALBUTEROL 120 PUFF/4 GM MDI IH PRN (13:33)
[2016-07-22] MEDS ORDERED: PROPOFOL 100 ML IV PRN (13:35)
[2016-07-22] MEDS: POTASSI CL 20 MEQ/50 ML RIDER 50 ML IV SCH ×2 (13:50→15:47)
--- NOTE | 2016-07-22 13:54 | PDOC H&P ---
History of Present Illness Admission Date/PCP: 07/22/16 13:28 Patient complains of: Found down History of Present Illness: LINDA WILLETT is a 75 year old male presents to the emergency department by EMS after having been found down at home under unusual circumstances. It's not clear to me how EMS was alerted to his distress but when they arrived found him lying on the floor covered in his own feces and barely arousable. His room air sat was 72% and they immediately placed him on CPAP for only able to get oxygen saturations to 85% and he remains largely obtunded prompting elective intubation in the field while in route. No family or friends accompanied him to the hospital. EMS run sheet is not available to me at this time. Details are taken from interview with the emergency room physician. The patient was admitted to this hospital in May with complaints of frequent falls and was found to have a Pseudomonas urinary tract infection and sulfonylurea-induced hypoglycemia as the source. He ultimately returned to baseline and was discharged home where he reportedly lives alone. He carries a diagnosis of paroxysmal fibrillation for which he is anticoagulated chronically on xarelto; diabetes; chronic anemia; COPD with chronic hypoxic and hypercapnic respiratory failure but he frequently refuses to wear his home O2; congestive heart failure with reported EF of only 35% but the only echo I see in his chart was from 2013 unless an EF of 55%. Evaluation in the emergency department shows a leukocytosis at 17.7, acute on chronic renal failure with a creatinine up to 3.5 from a baseline of what appears to be 1.2, chronically elevated troponin, chronically elevated BNP, and a chest x-ray suggestive of left lower lobe infiltrate. Of note he has been diagnosed with left lower lobe pneumonia in the past. Review of previous culture results show frequent Pseudomonas in his urine. I do not see a CT of the chest. I do not see sputum cultures. We were asked to admit the patient for further evaluation and management of presumed left lower lobe pneumonia resulting in acute on chronic hypoxic respiratory failure. The patient is obtunded and unable to answer questions or provide a medical history at this time. Past Medical History Cardiac Medical History: Reports: Atrial Fibrillation, Congestive Heart Failure - Systolic heart failure with a EF of 35%, Coronary Artery Disease, Myocardial Infarction - Last one 3-4 years ago, Hyperlipidema, Hypertension Pulmonary Medical History: Reports: Chronic Obstructive Pulmonary Disease (COPD) Denies: Asthma, Bronchitis, Pneumonia Neurological Medical History: Denies: Seizures Endocrine Medical History: Reports: Diabetes Mellitus Type 2 Musculoskeltal Medical History: Reports: Arthritis Psychiatric Medical History: Denies: Depression Hematology: Reports: Anemia - Chronic disease Past Surgical History Past Surgical History: Reports: Cardiac Catheterization - stent 2009, Coronary Artery Bypass Graft, Orthopedic Surgery - Hand and wrist surgery Social History Smoking Status: Unknown if Ever Smoked Frequency of Alcohol Use: None Hx Recreational Drug Use: No Hx Prescription Drug Abuse: No - Advance Directive Resuscitation Status: Full Code Family History Family History: Reviewed & Not Pertinent, CAD, Other Parental Family History Reviewed: Yes Children Family History Reviewed: Yes Sibling(s) Family History Reviewed.: Yes Medication/Allergy Home Medications: Fluticasone/Salmeterol [Advair 250-50 Diskus 14 Dose/Diskus] 1 inh IH Q12H #1 03/11/13 Dutasteride [Avodart] 0.5 mg PO QHS 07/14/13 Gabapentin [Neurontin 300 mg Capsule] 300 mg PO Q12 07/14/13 Fluticasone Propionate [Flonase] 2 spray NASL DAILY 01/13/14 Paroxetine HCl [Paxil] 10 mg PO QHS 01/13/14 Ipratropium/Albuterol Sulfate [Combivent Respimat 4 gm Mdi] 1 puff IH BID Aspirin 81 mg PO DAILY PRN #1 pkg 01/15/14 Atorvastatin Calcium [Lipitor 40 mg Tablet] 40 mg PO QHS 05/02/16 Furosemide [Lasix] 40 mg PO DAILY 05/02/16 Lisinopril [Prinivil 10 mg Tablet] 20 mg PO DAILY 05/02/16 Nitroglycerin 0.4 mg SL Q5MP PRN 05/02/16 Rivaroxaban [Xarelto 15 mg Tablet] 15 mg PO QHS 05/02/16 Cephalexin Monohydrate [Keflex 500 mg Capsule] 500 mg PO Q12H #14 capsule Glipizide [Glucotrol 5 mg Tablet] 5 mg PO BID #30 05/04/16 Metoprolol Tartrate [Lopressor 50 mg Tablet] 25 mg PO BID #0 05/04/16 Potassium Chloride [K-Tab ER] 20 meq PO DAILY #30 tablet.er 05/04/16 Allergies/Adverse Reactions: No Known Allergies Allergy (Verified 07/22/16 12:46) Review of Systems ROS unobtainable: Due to endotracheal tube, Due to mental status Physical Exam Vital Signs: Temp Pulse Resp BP Pulse Ox 100.6 F H 18 161/85 H 99 07/22/16 13:17 07/22/16 13:17 07/22/16 13:17 07/22/16 13:17 Results Impressions: Chest X-Ray 07/22/16 11:36 IMPRESSION: HEART ENLARGED WITHOUT FAILURE. LEFT BASILAR DENSITY CONCERNING FOR PNEUMONIA AND/OR ASPIRATION. Assessment & Plan - Diagnosis (1) Pneumonia Qualifiers: Pneumonia type: due to unspecified organism Laterality: left Lung location: lower lobe of lung Qualified Code(s): J18.1 - Lobar pneumonia, unspecified organism Is this a current diagnosis for this admission?: YesPlan: Admit the patient to the ICU for antibiotic coverage to include pseudomonas given his previous urine culture results he's clearly at risk for same. Furthermore had multiple hospitalizations for various reasons and previous admissions for left lower lobe pneumonia raising his risk of hospital-acquired pathogens. Continue mechanical ventilation. We do not have pulmonary coverage for the weekend. (2) Acute respiratory failure with hypoxia Is this a current diagnosis for this admission?: YesPlan: Continue mechanical ventilation wean FiO2 as tolerated. Daily weaning trials. (3) CRAIG (acute kidney injury) Is this a current diagnosis for this admission?: YesPlan: Unclear etiology at this time but could be prerenal given the circumstances under which he was found. We'll hydrate and monitor his renal function moving forward. Try to avoid nephrotoxic medications where possible. Pharmacy to renally dose antibiotics. If his renal function fails to respond will consult nephrology assuming they are available this weekend. (4) Anemia of chronic disease Is this a current diagnosis for this admission?: YesPlan: H&H appears to be near baseline, no evidence of overt blood loss, continue to trend his hemoglobin. (6) COPD (chronic obstructive pulmonary disease) Qualifiers: COPD type: unspecified COPD Qualified Code(s): J44.9 - Chronic obstructive pulmonary disease, unspecified Is this a current diagnosis for this admission?: YesPlan: No evidence for bronchospasm at this time. He is apparently noncompliant with his home O2, it's unclear how compliant he is with his other treatments. (7) Chronic kidney disease, stage III (moderate) Is this a current diagnosis for this admission?: Yes (8) Coronary artery disease Qualifiers: Coronary Disease-Associated Artery/Lesion type: [place] artery [place] vs. transplanted heart: [place] heart Associated angina: without angina Qualified Code(s): I25.10 - Atherosclerotic heart disease of [place] coronary artery without angina pectoris Is this a current diagnosis for this admission?: YesPlan: His cardiac enzymes have never been normal when we've checked them and it's unclear whether this is his baseline or related to his chronic kidney disease and his inability to clear the enzyme; likewise his BNP has never normal either and has been higher than current readings. That being said given his history will trend his cardiac enzymes through the night. His EKG does not show ischemic changes. Repeat echocardiogram looking for wall motion abnormalities. (9) Hypertension Qualifiers: Hypertension type: essential hypertension Qualified Code(s): I10 - Essential (primary) hypertension (10) Paroxysmal atrial fibrillation Is this a current diagnosis for this admission?: YesPlan: Heart rate barely controlled at present in the 110's, will re-initiate his rate controlling meds as his condition will allow. (11) Sepsis Qualifiers: Sepsis type: sepsis due to unspecified organism Qualified Code(s): A41.9 - Sepsis, unspecified organism Is this a current diagnosis for this admission?: YesPlan: Evidence by leukocytosis, tachycardia, hypoxia and in organ failure with acute encephalopathy and respiratory failure requiring intubation. - Time Time Spent: Greater than 70 Minutes Medications reviewed and adjusted accordingly: Yes - Inpatient Certification Medical Necessity: Significant Comorbidiites Make Outpatient Treatment Too Risky , Need For IV Fluids, Need For Continuous Telemetry Monitoring, Need for IV Antibiotics, Risk of Complication if Not Cared For in Hospital
[2016-07-22] MEDS ORDERED: METOPROLOL TARTRATE PF/INJ 5 MG/5 ML SDV IV SCH (15:00)
[2016-07-22] MEDS: RINGERS SOLUTION,LACTATED 1,000 ML IV PRN ×2 (15:47→19:36)
[2016-07-22] MEDS ORDERED: RIVAROXABAN 15 MG TABLET PO SCH (17:00)
[2016-07-22] MEDS ORDERED: ACETAMINOPHEN 325 MG TABLET NG PRN (17:46)
[2016-07-22] MEDS ORDERED: DEXTROSE 40% GEL 15 GM TUBE NG PRN ×2 (17:47)
[2016-07-22] MEDS ORDERED: LEVOFLOXACIN 750 MG/D5W RTU 750 MG/150 ML RTUPB IV SCH (18:00)
--- NOTE | 2016-07-22 18:22 | EKG REPORT ---
SEVERITY:- ABNORMAL ECG - ATRIAL FIBRILLATION, V-RATE 75-135 NONSPECIFIC INTRAVENTRICULAR CONDUCTION DELAY PROBABLE LVH WITH SECONDARY REPOL ABNRM PROBABLE INFERIOR INFARCT, AGE INDETERMINATE : Confirmed by: Flo Escudero MD 22-Jul-2016 18:22:11
[2016-07-22] MEDS ORDERED: RIVAROXABAN 15 MG TABLET NG ONE (19:30)
[2016-07-22] MEDS ORDERED: RINGERS SOLUTION,LACTATED 1,000 ML IV ONE ×2 (19:34→20:19)
[2016-07-22] MEDS ORDERED: ASPIRIN 81 MG TABLET, CHEWABLE PO ONE (19:38)
[2016-07-22] MEDS ORDERED: DEXTROSE 5%-WATER 250 ML with PHENYLEPHRINE HCL 40 MG IV PRN ×2 (20:21)
[2016-07-22] MEDS ORDERED: VANCOMYCIN HCL 0 MG in DEXTROSE 5%-WATER 250 ML IV NR (20:30)
--- NOTE | 2016-07-22 20:35 | PDOC TRANSFER SUMMARY ---
General Admission Date/PCP: 07/22/16 13:25 Resuscitation Status: Full Code - Transfer Diagnosis (1) Non-STEMI (non-ST elevated myocardial infarction) Is this a current diagnosis for this admission?: YesDiagnosis Summary: Probably demand ischemia with a marked elevation in his troponin. Beta salud is contraindicated due to developing hypotension, anticoagulation is relatively contraindicated due to coffee-ground emesis now found in his gastric secretions. His chronic Xarelto therapy is discontinued, he is given an aspirin per NG tube 1. I spoke with Dr. Garcia at [facility] and he has graciously agreed to accept the patient in transfer to their ICU. (2) Pneumonia Is this a current diagnosis for this admission?: YesDiagnosis Summary: Given the patient's downward spiral will add vancomycin though I have no prior history of MRSA colonization or infection and do not feel like he is giving us much margin for error. Already on cefepime and Levaquin. (3) Sepsis Is this a current diagnosis for this admission?: YesDiagnosis Summary: Now developing borderline hypotension, unclear if related to positive pressure ventilation or worsening infectious process. Nurses were extracted to start second large bore IV and hang two liters lactated ringer simultaneously. Consult placed to surgicalist for interim central line placement, however he is currently in the OR performing exploratory laparotomy. Attempted to reach out to the emergency department physicians who will attempt carve out time for the procedure in amongst the multiple critically ill and emergent patients they are already seeing. As needed order for Gianfranco-Synephrine placed in the chart as well. (4) Acute respiratory failure with hypoxia Is this a current diagnosis for this admission?: YesDiagnosis Summary: Patient is intubated and stable on the vent from this standpoint, in fact his FiO2 is declined from 100% to 80% (5) CRAIG (acute kidney injury) Is this a current diagnosis for this admission?: YesDiagnosis Summary: Likely due to sepsis. Continue IV fluid. (6) Anemia of chronic disease Is this a current diagnosis for this admission?: Yes (8) COPD (chronic obstructive pulmonary disease) Is this a current diagnosis for this admission?: Yes (9) Chronic kidney disease, stage III (moderate) Is this a current diagnosis for this admission?: Yes (10) Coronary artery disease Is this a current diagnosis for this admission?: Yes (12) Paroxysmal atrial fibrillation Is this a current diagnosis for this admission?: Yes - Transfer Medications Home Medications: Atorvastatin Calcium [Lipitor 40 mg Tablet] 40 mg PO QHS 07/22/16 Dutasteride [Avodart] 0.5 mg PO DAILY 07/22/16 Fluticasone Propionate [Flonase Nasal [place] 50 Mcg/[place] 16 gm] 1 spray NASL DAILY 07/22/16 Fluticasone/Salmeterol [Advair 250-50 Diskus 28 dose] 1 puff IH BID 07/22/16 Furosemide [Lasix] 80 mg PO DAILY 07/22/16 Gabapentin [Neurontin 300 mg Capsule] 300 mg PO TID 07/22/16 Glipizide [Glucotrol 5 mg Tablet] 5 mg PO BID 07/22/16 Ipratropium/Albuterol Sulfate [Combivent Respimat Inhal [place]] 1 puff IN QID Lisinopril [Zestril] 20 mg PO DAILY 07/22/16 Metoprolol Tartrate [Lopressor 25 mg Tablet] 25 mg PO BID 07/22/16 Nitroglycerin [Nitrostat] 1 tab SL Q5M 07/22/16 Paroxetine HCl [Paxil] 10 mg PO DAILY 07/22/16 Polyethylene Glycol 3350 [Miralax Powder 17 gm/Packet] 1 packet PO DAILY Potassium Chloride [Klor-Con 10 Meq Tablet.sa] 10 meq PO DAILY 07/22/16 Rivaroxaban [Xarelto 15 mg Tablet] 15 mg PO DAILY 07/22/16 Transfer Medications: Current Medications Acetaminophen (Tylenol 325 Mg Tablet) 650 mg NG Q4HP PRN PRN Reason: pain or temp greater than 101F Stop: 08/21/16 13:29 Albuterol/Ipratropium (Combivent Respimat 4 Gm Mdi) 4 puff IH Q6HP PRN PRN Reason: FOR WHEEZING Stop: 08/21/16 13:32 Dextrose (Dextrose Inj 50% Syringe (25 Gm/50 Ml)) 12.5 gm IV PRN PRN; Protocol PRN Reason: FOR BG 50-69 IN ALERT PATIENT Stop: 08/21/16 13:24 Dextrose (Dextrose Inj 50% Syringe (25 Gm/50 Ml)) 25 gm IV PRN PRN PRN Reason: Protocol Stop: 08/21/16 13:24 Famotidine (Pepcid Inj/Pf 20 Mg/2 Ml Sdv) 20 mg IV Q12 QUETA Stop: 08/21/16 21:59 Glucagon (Glucagen Inj 1 Mg Vial) 1 mg IM PRN PRN; Protocol PRN Reason: Evaluate for BG < 70 Stop: 08/21/16 13:24 Glucose (Glutose 40% Gel 15 Gm Tube) 30 gm NG PRN PRN; Protocol PRN Reason: FOR BG < 50 IN ALERT PATIENT Stop: 08/21/16 13:24 Glucose (Glutose 40% Gel 15 Gm Tube) 15 gm NG PRN PRN; Protocol PRN Reason: FOR BG 50-69 IN ALERT PATIENT Stop: 08/21/16 13:24 Cefepime HCl (Maxipime Rtu 2 Gm-D5w 50 Ml Premix Bag) 2 gm in 50 mls @ 100 mls/ hr IV Q12 [facility] Stop: 07/29/16 21:59 Levofloxacin/Dextrose (Levaquin Rtu 750 Mg/D5w 150 Ml Premix) 750 mg in 150 mls @ 100 mls/hr IV Q2D@1800 [facility] Stop: 07/29/16 17:59 Last Admin: 07/22/16 19:08 Dose: 150 ml Lactated Ringer's (Lactated Ringers 1000 Ml Iv Soln) 1,000 mls @ 100 mls/hr IV CONTINUOUS PRN PRN Reason: THIS MED IS NOT "PRN" Stop: 08/21/16 13:24 Last Admin: 07/22/16 19:36 Dose: 1,000 ml Propofol (Diprivan Rtu 1000 Mg/100 Ml Inf.Bottle) 100 mls @ 0 mls/hr IV CONTINUOUS PRN; Protocol; Titrate PRN Reason: THIS MED IS NOT "PRN" Stop: 08/21/16 13:34 Last Admin: 07/22/16 19:33 Dose: 100 ml Insulin Human Lispro (Humalog Insulin 100 Unit/1 Ml 3 Ml Vial) 0 - 12 unit SUBCUT Q6HP PRN PRN Reason: Protocol Stop: 08/21/16 13:29 Sodium Chloride (Saline Flush 2.5 Ml Monoject Prefil Syrin) 2.5 ml IV Q8 QUETA Stop: 08/21/16 13:59 Last Admin: 07/22/16 15:42 Dose: 2.5 ml - Allergies Allergies/Adverse Reactions: No Known Allergies Allergy (Verified 07/22/16 12:46) - Diet/Activity Discharge Diet: Other (Comments) - Nothing by mouth Discharge Activity: Bedrest Hospital Course Hospital Course: LINDA WILLETT is a 75 year old male presents to the emergency department by EMS after having been found down at home under unusual circumstances. It's not clear to me how EMS was alerted to his distress but when they arrived found him lying on the floor covered in his own feces and barely arousable. His room air sat was 72% and they immediately placed him on CPAP for only able to get oxygen saturations to 85% and he remains largely obtunded prompting elective intubation in the field while in route. No family or friends accompanied him to the hospital. EMS run sheet is not available to me at this time. Details are taken from interview with the emergency room physician. The patient was admitted to this hospital in May with complaints of frequent falls and was found to have a Pseudomonas urinary tract infection and sulfonylurea-induced hypoglycemia as the source. He ultimately returned to baseline and was discharged home where he reportedly lives alone. He carries a diagnosis of paroxysmal fibrillation for which he is anticoagulated chronically on xarelto; diabetes; chronic anemia; COPD with chronic hypoxic and hypercapnic respiratory failure but he frequently refuses to wear his home O2; congestive heart failure with reported EF of only 35% but the only echo I see in his chart was from 2013 unless an EF of 55%. Evaluation in the emergency department shows a leukocytosis at 17.7, acute on chronic renal failure with a creatinine up to 3.5 from a baseline of what appears to be 1.2, chronically elevated troponin, chronically elevated BNP, and a chest x-ray suggestive of left lower lobe infiltrate. Of note he has been diagnosed with left lower lobe pneumonia in the past. Review of previous culture results show frequent Pseudomonas in his urine. I do not see a CT of the chest. I do not see sputum cultures. We were asked to admit the patient for further evaluation and management of presumed left lower lobe pneumonia resulting in acute on chronic hypoxic respiratory failure. The patient is obtunded and unable to answer questions or provide a medical history at this time. ADDENDUM: The patient remains intubated and sedated and unable to provide a review of systems her medical history. His blood pressure has dropped with initiation of the metoprolol IV and will need to be held. His gastric secretions and the NG tube are coffee-ground and his anticoagulant will need to be held. He is not requiring any sedation at this time though he is stirring some he is not pulling against a soft wrist restraints making no effort to get out of the bed. A/P: NST AR -we do not have pulmonary coverage over the weekend nor do we have critical care beds or critical care physician, therefore I spoke with Dr. Garcia at [facility] who is agreed to accept the patient in transfer. It is not clear to me at this time whether a bed is available. Unfortunately his troponin is now markedly elevated from 0.5 to greater than 5 consistent with an NSTEMI. As noted above beta salud and anticoagulation are now contraindicated. Will give aspirin per NG tube. Can add statin therapy. case discussed with Dr Stovall, covering radon inspector. Physical Exam Vital Signs: Temp Pulse Resp BP Pulse Ox 99.7 F 16 83/50 L 98 07/22/16 20:01 07/22/16 20:01 07/22/16 20:01 07/22/16 20:01 Results Laboratory Results: 07/22/16 07/22/16 17:58 18:40 Carbonic Acid Cancelled HCO3/H2CO3 Ratio Cancelled ABG pH Cancelled ABG pCO2 Cancelled ABG pO2 Cancelled ABG HCO3 Cancelled ABG O2 Saturation Cancelled ABG Base Excess Cancelled FiO2 Cancelled Lactic Acid 4.4 H 07/22/16 17:58 Troponin I 5.010 Impressions: Chest X-Ray 07/22/16 11:36 IMPRESSION: HEART ENLARGED WITHOUT FAILURE. LEFT BASILAR DENSITY CONCERNING FOR PNEUMONIA AND/OR ASPIRATION. Plan Discharge Plan: Transfer to [facility] Dr. Garcia excepting when bed is available. Time Spent: Greater than 30 Minutes
[2016-07-22 20:45] LABS: ARTERIAL BLOOD BASE EXCESS -8.5 mmol/L
[2016-07-22] MEDS ORDERED: PHENYLEPHRINE HCL INJ/PF 10 MG/1 ML SDV ONE (21:19)
[2016-07-22] MEDS ORDERED: VANCOMYCIN HCL 1,250 MG in DEXTROSE 5%-WATER 250 ML IV ONE (21:30)
--- NOTE | 2016-07-22 21:58 | PDOC CONSULTATION ---
Consultation Consult Date: 07/22/16 Attending physician:: LETICIA RUIZ Consult reason:: Troponin Elevation, hypotension History of Present Illness Admission Date/PCP: 07/22/16 13:25 Patient complains of: Pt is unresponsive History of Present Illness: LINDA WILLETT is a 75 year old male presents to the emergency department by EMS after having been found down at home under unusual circumstances. It's not clear to me how EMS was alerted to his distress but when they arrived found him lying on the floor covered in his own feces and barely arousable. His room air sat was 72% and they immediately placed him on CPAP for only able to get oxygen saturations to 85% and he remains largely obtunded prompting elective intubation in the field while in route. No family or friends accompanied him to the hospital. EMS run sheet is not available to me at this time. Details are taken from interview with the emergency room physician. The patient was admitted to this hospital in May with complaints of frequent falls and was found to have a Pseudomonas urinary tract infection and sulfonylurea-induced hypoglycemia as the source. He ultimately returned to baseline and was discharged home where he reportedly lives alone. He carries a diagnosis of paroxysmal fibrillation for which he is anticoagulated chronically on xarelto; diabetes; chronic anemia; COPD with chronic hypoxic and hypercapnic respiratory failure but he frequently refuses to wear his home O2; congestive heart failure with reported EF of only 35% but the only echo I see in his chart was from 2013 unless an EF of 55%. Evaluation in the emergency department shows a leukocytosis at 17.7, acute on chronic renal failure with a creatinine up to 3.5 from a baseline of what appears to be 1.2, chronically elevated troponin, chronically elevated BNP, and a chest x-ray suggestive of left lower lobe infiltrate. Of note he has been diagnosed with left lower lobe pneumonia in the past. Review of previous culture results show frequent Pseudomonas in his urine. I do not see a CT of the chest. I do not see sputum cultures. We were asked to admit the patient for further evaluation and management of presumed left lower lobe pneumonia resulting in acute on chronic hypoxic respiratory failure. The patient is obtunded and unable to answer questions or provide a medical history at this time.This history was reviewed and confirmed. Talked with ER nurse taking care of the patient. Past Medical History Cardiac Medical History: Reports: Atrial Fibrillation, Congestive Heart Failure - Systolic heart failure with a EF of 35%, Coronary Artery Disease, Myocardial Infarction - Last one 3-4 years ago, Hyperlipidema, Hypertension Pulmonary Medical History: Reports: Chronic Obstructive Pulmonary Disease (COPD) Denies: Asthma, Bronchitis, Pneumonia Neurological Medical History: Denies: Seizures Endocrine Medical History: Reports: Diabetes Mellitus Type 2 Musculoskeltal Medical History: Reports: Arthritis Psychiatric Medical History: Denies: Depression Hematology: Reports: Anemia - Chronic disease Past Surgical History Past Surgical History: Reports: Cardiac Catheterization - stent 2009, Coronary Artery Bypass Graft, Orthopedic Surgery - Hand and wrist surgery Social History Information Source: Emergency Med Personnel, [facility] Records Smoking Status: Unknown if Ever Smoked Frequency of Alcohol Use: None Hx Recreational Drug Use: No Hx Prescription Drug Abuse: No - Advance Directive Resuscitation Status: Full Code Family History Family History: Reviewed & Not Pertinent, CAD, Other - Chart review Parental Family History Reviewed: No - patient unable to give this history Children Family History Reviewed: No Sibling(s) Family History Reviewed.: No Medication/Allergy Home Medications: Atorvastatin Calcium [Lipitor 40 mg Tablet] 40 mg PO QHS 07/22/16 Dutasteride [Avodart] 0.5 mg PO DAILY 07/22/16 Fluticasone Propionate [Flonase Nasal [place] 50 Mcg/[place] 16 gm] 1 spray NASL DAILY 07/22/16 Fluticasone/Salmeterol [Advair 250-50 Diskus 28 dose] 1 puff IH BID 07/22/16 Furosemide [Lasix] 80 mg PO DAILY 07/22/16 Gabapentin [Neurontin 300 mg Capsule] 300 mg PO TID 07/22/16 Glipizide [Glucotrol 5 mg Tablet] 5 mg PO BID 07/22/16 Ipratropium/Albuterol Sulfate [Combivent Respimat Inhal [place]] 1 puff IN QID Lisinopril [Zestril] 20 mg PO DAILY 07/22/16 Metoprolol Tartrate [Lopressor 25 mg Tablet] 25 mg PO BID 07/22/16 Nitroglycerin [Nitrostat] 1 tab SL Q5M 07/22/16 Paroxetine HCl [Paxil] 10 mg PO DAILY 07/22/16 Polyethylene Glycol 3350 [Miralax Powder 17 gm/Packet] 1 packet PO DAILY Potassium Chloride [Klor-Con 10 Meq Tablet.sa] 10 meq PO DAILY 07/22/16 Rivaroxaban [Xarelto 15 mg Tablet] 15 mg PO DAILY 07/22/16 Allergies/Adverse Reactions: No Known Allergies Allergy (Verified 07/22/16 12:46) Review of Systems ROS unobtainable: Due to endotracheal tube Physical Exam Vital Signs: Temp Pulse Resp BP Pulse Ox 99.7 F 16 83/50 L 98 07/22/16 20:01 07/22/16 20:01 07/22/16 20:01 07/22/16 20:35 Exam: GENERAL: well-nourished and in no acute distress. Patient is intubated and sedated. Orientation cannot be checked HEAD: Atraumatic, normocephalic. EYES: Pupils equal round and reactive to light, extraocular movements could not be checked, sclera anicteric, conjunctiva are normal. ENT: TMs normal, nares patent, oropharynx clear without exudates. Moist mucous membranes. No oral ulcerations or bleeding gums noted NECK: supple without lymphadenopathy or JVD. Trachea is central. No cervical or axillary lymphadenopathy noted. Carotids are 2+ LUNGS: Breath sounds mostly clear to auscultation patient is noted to have bibasal crackles at bases, mild wheezing noted also at bases. CHEST: Palpation of the chest wall shows no significant chest wall tenderness or abnormalities. HEART: [place] SALESPERSON ART OBJECTS, No PSH, 2/6 JOHN aortic area, 1/6 lamar systolic murmur mitral area , no rubs or gallops. ABDOMEN: Soft, no significant tenderness appreciated, normoactive bowel sounds. No guarding, no rebound. No rigidity noted . No masses appreciated. EXTREMITIES: Pedal pulses are 1-2+, no calf tenderness noted, 1+ pedal edema noted. No clubbing or cyanosis. NEUROLOGICAL: The patient cannot participate in the neurological exam but no facial asymmetry noted. Extremities slightly hypotonic PSYCH: This cannot be evaluated. Patient cannot participate. SKIN: No significant ecchymosis, rash, or signs of pruritus noted. MUSCULOSKELETAL EXAM: No significant joint swelling noted. Patient cannot participate in musculoskeletal exam Results Laboratory Results: 07/22/16 07/22/16 07/22/16 17:58 18:40 20:30 Carbonic Acid Cancelled 1.30 HCO3/H2CO3 Ratio Cancelled 14:1 ABG pH Cancelled 7.25 L ABG pCO2 Cancelled 43.1 ABG pO2 Cancelled 183.6 H ABG HCO3 Cancelled 18.3 L ABG O2 Saturation Cancelled 99.0 H ABG Base Excess Cancelled -8.5 FiO2 Cancelled 80% Lactic Acid 4.4 H 07/22/16 07/22/16 17:58 19:40 Troponin I 5.010 5.850 EKG Comments: Atrial fibrillation with rapid ventricular response, heart rate 115, nonspecific ST-T wave changes noted. Nonspecific IVCD noted. When compared to prior EKG no significant changes noted Impressions: Chest X-Ray 07/22/16 11:36 IMPRESSION: HEART ENLARGED WITHOUT FAILURE. LEFT BASILAR DENSITY CONCERNING FOR PNEUMONIA AND/OR ASPIRATION. Assessment & Plan - Diagnosis (1) Elevated troponin I level Is this a current diagnosis for this admission?: Yes (2) Hypotension (arterial) Qualifiers: Hypotension type: other hypotension type Qualified Code(s): I95.89 - Other hypotension Is this a current diagnosis for this admission?: Yes (3) CRAIG (acute kidney injury) Is this a current diagnosis for this admission?: Yes (4) Chronic atrial fibrillation Is this a current diagnosis for this admission?: Yes (5) Non-STEMI (non-ST elevated myocardial infarction) Is this a current diagnosis for this admission?: Yes (6) Pneumonia Qualifiers: Pneumonia type: due to unspecified organism Laterality: left Lung location: lower lobe of lung Qualified Code(s): J18.1 - Lobar pneumonia, unspecified organism Is this a current diagnosis for this admission?: Yes (7) Sepsis Qualifiers: Sepsis type: sepsis due to unspecified organism Qualified Code(s): A41.9 - Sepsis, unspecified organism Is this a current diagnosis for this admission?: Yes (8) Coronary artery disease Qualifiers: Coronary Disease-Associated Artery/Lesion type: unspecified vessel or lesion type [place] vs. transplanted heart: [place] heart Associated angina: without angina Qualified Code(s): I25.10 - Atherosclerotic heart disease of [place] coronary artery without angina pectoris Is this a current diagnosis for this admission?: Yes (9) Unresponsive state Is this a current diagnosis for this admission?: Yes - Notes Notes: Patient was seen in the emergency room. He was noted to be critically ill. He is on Gianfranco-Synephrine drip and also on IV fluid boluses. Blood pressure noted to be in the 80s. Patient's troponin I also came back in the suggestive range and shows significant jump. Patient however remains unresponsive. His pulse volume is noted to be good. I feel patient has sepsis. Patient also has kidney injury, is unresponsive. Patient also noted to have GI bleed as noted by guaiac positive NG suction. Twelve-lead EKG reviewed showed tachycardia but no acute ST segment changes. At this point agree with vasopressors drip. If blood pressure remains low, consider adding vasopressin. Agree with transfer to tertiary care. Overall prognosis poor. May consider stress dose steroids. I believe patient has underlying sepsis rather than acute coronary syndrome. At this point best option is to maintain his vital signs best as we can. A stat 2- D echocardiogram would have been nice to obtain. However transfer to tertiary care is recommended and is being arranged. Patient's medication and plans by the hospitalist reviewed. Agree with above. Discussed with hospitalist. - Time Time Spent: 50 to 70 Minutes Medications reviewed and adjusted accordingly: Yes
[2016-07-22] MEDS ORDERED: FAMOTIDINE INJ/PF 20 MG/2 ML SDV IV SCH (22:00)
[2016-07-22] MEDS ORDERED: CEFEPIME 2 GM/D5W RTU 2 GM/50 ML RTUPB IV SCH (22:00)
[2016-07-23 01:33] VITALS: BP 98/73
[2016-07-23] MEDS ORDERED: RIVAROXABAN 15 MG TABLET NG SCH (17:00)
--- NOTE | 2016-07-25 09:39 | Progress Note ---
Provider Note Provider Note: 07/22/2016: 9:04 PM, I contacted Yumiko Delgadillo, patient's contact officer in his electronic health record. Ms. Delgadillo is the of patient's nephew. Patient never . No children. I discussed the critical nature of patient's illness and fact that he may not survive either his overall illness, or even the transfer to the tertiary center. Told her patient,s blood pressure was low. However, I told her that Dr. Kahn the transferring physician felt that despite the increased risk of transfer of an unstable patient, patient's chances of survival were greater with transfer than by staying at our facility. She was most appreciative of her efforts and agreed with our plans.
== END 2016-07-22 21:50 | disposition short-term general hospital (02) | DRG 280 ==
LOC: ER 11:16 → EH 13:25 → UNDOADMIN 13:28 → EH 13:28
PROVIDERS: ADMIT Internal Medicine; ATTEND Internal Medicine
PROC: 5A1935Z Respiratory Ventilation, Less than 24 Consecutive Hours (ICD-10-PCS; principal; 2016-07-22)
PROC: 0BH17EZ Insertion of Endotracheal Airway into Trachea, Via Natural or Artificial Opening (ICD-10-PCS; 2016-07-22)
PROC: 02HV33Z Insertion of Infusion Device into Superior Vena Cava, Percutaneous Approach (ICD-10-PCS; 2016-07-22)
DX: I21.4 Non-ST elevation (NSTEMI) myocardial infarction (principal); A41.9 Sepsis, unspecified organism; J18.1 Lobar pneumonia, unspecified organism; J96.21 Acute and chronic respiratory failure with hypoxia; R65.20 Severe sepsis without septic shock; N17.9 Acute kidney failure, unspecified; I13.2 Hypertensive heart and chronic kidney disease with heart failure and with stage 5 chronic kidney disease, or end stage renal disease; J96.12 Chronic respiratory failure with hypercapnia; I50.22 Chronic systolic (congestive) heart failure; D63.1 Anemia in chronic kidney disease; J44.9 Chronic obstructive pulmonary disease, unspecified; E11.22 Type 2 diabetes mellitus with diabetic chronic kidney disease; N18.3 Chronic kidney disease, stage 3 (moderate); I48.0 Paroxysmal atrial fibrillation; I25.10 Atherosclerotic heart disease of native coronary artery without angina pectoris; E78.5 Hyperlipidemia, unspecified; I95.89 Other hypotension; M19.90 Unspecified osteoarthritis, unspecified site; W01.0XXA Fall on same level from slipping, tripping and stumbling without subsequent striking against object, initial encounter; E87.6 Hypokalemia; I25.2 Old myocardial infarction; Z78.1 Physical restraint status; Z79.899 Other long term (current) drug therapy; Z91.81 History of falling; Z60.2 Problems related to living alone; Z86.73 Personal history of transient ischemic attack (TIA), and cerebral infarction without residual deficits; Z91.19 Patient's noncompliance with other medical treatment and regimen; Z95.1 Presence of aortocoronary bypass graft; Z95.5 Presence of coronary angioplasty implant and graft; Z82.49 Family history of ischemic heart disease and other diseases of the circulatory system
CPT/HCPCS: 36415; 36600; 51702; 71010; 80048; 80076; 82550; 82803; 82962; 83605; 83690; 83880; 84484; 85025; 87040; 87070; 87077; 87186; 87205; 93005; 93010; 94002; 99291; C1751; J0456; J0696; J1956; J2704; J3010; J3480; J3490; J7030; J7120

== ENCOUNTER → 2016-10-13 | Outpatient (CLI) | payer MEDICARE, MEDICAID ==
--- NOTE | 2016-10-13 09:12 | RADIOLOGY REPORT (SQ) ---
EXAM DESCRIPTION: FOOT RIGHT COMPLETE COMPLETED DATE/TIME: 10/13/2016 7:54 am REASON FOR STUDY: DFU (E11.622) L97.145 NON-PRS CHRONIC ULCER OTH PRT RIGHT FOOT W FAT LAYER COMPARISON: None. NUMBER OF VIEWS: Three views. TECHNIQUE: AP, lateral and oblique radiographic images acquired of the right foot. LIMITATIONS: None. FINDINGS: MINERALIZATION: Overall bone density is grossly normal BONES: There is aggressive bony demineralization of the medial sesamoid bone at the 1st metatarsophal angeal joint, and aggressive demineralization of the medial aspect 1st metatarsal head and great toe proximal phalanx. These findings are worrisome for septic arthritis and osteomyelitis at the 1st met atarsophalangeal joint right foot. Prominent plantar and dorsal calcaneal spurs. Old healed pinky toe proximal phalanx midshaft fractur e JOINTS: No effusions. SOFT TISSUES: Medial forefoot soft tissue swelling. Actual soft tissue ulcer is difficult to visuali ze. No foreign body. OTHER: No other significant finding. IMPRESSION: Soft tissue swelling in the forefoot with aggressive bony demineralization at the 1st me tatarsophalangeal joint worrisome for septic arthritis and osteomyelitis TECHNICAL DOCUMENTATION: JOB ID: [id number] [employer]- All Rights Reserved
--- NOTE | 2016-10-13 16:24 | XCELERA REPORT ---
[address] [address] Lower Extremity Arterial Evaluation Name: LINDA WILLETT Age: 75 yrs Gender: Male : 1940 Patient Status: Outpatient Patient Location: Study Date: 10/13/2016 08:13 AM Procedure: A color flow and duplex scan of the lower extremity arteries was performed bilaterally with velocity and waveform anaylsis. Ankle brachial indicies performed. Reason For Study: ULCER Ordering Physician: EFREM MEADE Performed By: Martine Martinez Measurements and Calculations Right Left INSPECTOR PLUG SEAM PSV 108.1 89.3 cm/sec Prox PFA PSV -115.5 -113.0 cm/sec Prox SFA PSV -98.2 cm/sec Mid SFA PSV -92.6 cm/sec Dist SFA PSV -42.9 -207.2 cm/sec Prox Pop A PSV 23.4 59.0 cm/sec Dist SARIKA PSV 32.1 26.4 cm/sec Prox CLIENT SUPPORT ADMINISTRATOR PSV 36.7 cm/sec Rodney Pedis PSV 29.3 28.6 cm/sec Right Side Arterial Evaluation Normal velocity and triphasic waveforms noted in the Common Femoral artery. Biphasic in the Deep Femoral. Occluded Femoral, monophasic with sever attenuation of waveform to the infrageniculate vessels. 20-49 % stenosis at the Aorta Iliac. Occluded Femoral artery. Ankle Brachial index was not obtainable. Occlusions. Left Side Arterial Evaluation Normal velocity and biphasic waveforms noted in the Common Femoral artery. Biphasic in the Deep Femoral. Stenosed Femoral, monophasic with severe attenuation of waveform to the infrageniculate vessels. occlusion in the Posterior Tibial artery 20-49 % stenosis at the Aorta Iliac. Occluded Femoral artery. Sequential disease. Ankle Brachial index was not obtainable. Occlusions. Interpretation Summary Severe hemodynamically significant lesions in the bilateral lower extremities, on duplex imaging, at rest. Multilevel, severe arterial occlusive disease. : EFREM MEADE > Silvestre Smith
--- NOTE | 2016-10-15 12:26 | XCELERA REPORT ---
[address] [address] Lower Extremity Venous Evaluation Name: LINDA WILLETT Age: 75 yrs Gender: Male : 1940 Patient Status: Outpatient Patient Location: Study Date: 10/13/2016 08:56 AM Procedure: A bilateral duplex scan of the lower extremity veins was performed. The evaluation included responses to compression and other maneuvers with patient in the supine and standing positions to assess venous insufficiency. Reason For Study: ULCER Ordering Physician: EFREM MEADE Performed By: Martine Martinez Right Sided Venous Evaluation Deep venous system evaluatiion shows patent veins with no obstruction or significant reflux identified. Sapheno Femoral junction: no reflux. Femoral vein reflux: no reflux. Greater Saphenous vein, Proximal thigh: reflux: no reflux. Greater Saphenous vein, Distal thigh: reflux: no reflux. Greater Saphenous vein, Proximal below knee: reflux: no reflux. No significant Perforators identified. Left Sided Venous Evaluation Deep venous system evaluatiion shows patent veins with no obstruction or significant reflux identified. Sapheno Femoral junction: no reflux. Femoral vein reflux: no reflux. Greater Saphenous vein, partially absent, harvested for CABG. Greater Saphenous vein, Proximal below knee: reflux: no reflux. No significant Perforators identified. Interpretation Summary No duplex evidence of DVT or obstruction in the bilateral lower extremities. No reflux noted. 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 : EFREM MEADE [place]
== END ==
LOC: SP 07:27
PROVIDERS: ATTEND Nurse Practitioner Family
DX: E11.621 Type 2 diabetes mellitus with foot ulcer (principal); L97.512 Non-pressure chronic ulcer of other part of right foot with fat layer exposed; M00.9 Pyogenic arthritis, unspecified
CPT/HCPCS: 93925; 93970

== ENCOUNTER → 2016-10-21 | Outpatient (CLI) | payer MEDICAID, MEDICARE ==
--- NOTE | 2016-10-21 10:20 | RADIOLOGY REPORT (SQ) ---
EXAM DESCRIPTION: MRI RT LOWER EXTREMITY WITHOUT COMPLETED DATE/TIME: 10/21/2016 9:19 am REASON FOR STUDY: NON PRESSURE CHRONIC ULCER, TYPE II DIABETES L97.512 NON-PRS CHRONIC ULCER OTH MO T RIGHT FOOT W FAT LAYER COMPARISON: Right foot plain films 10/13/2016 TECHNIQUE: T1-weighted, T2-weighted, and gradient echo noncontrast multiplanar imaging of the right foot. LIMITATIONS: None. FINDINGS: MARROW SIGNAL: Abnormal marrow edema is seen along the distal 1st metatarsal, sesamoid bon es at the 1st MTP joint, and throughout the base of the great toe proximal phalanx. These findings a re worrisome for osteomyelitis and septic arthritis, and correlates with forefoot soft tissue swellin g and irregularity of the sesamoid bones on plain film 10/13/2016. JOINT EFFUSION: Trace fluid in the 1st metatarsophalangeal joint PLANTAR FASCIA: Normal as visualized. TARSOMETATARSAL AND TOE ARTICULATIONS: Probable septic arthritis at the 1st metatarsophalangeal joint , with trace joint space fluid, bony resorption and marrow edema in the sesamoid bones, 1st metatarsa l head and base of the 1st proximal phalanx. INTERMETATARSAL SPACES AND PLANTAR PLATES: Intact. No soft tissue mass to suggest a neuroma. SOFT TISSUES: There is mild edema in the flexor digitorum brevis and intra osseous muscles from the 1 st through the 5th metatarsals on axial STIR images 12-19. OTHER: Diffuse skin thickening and subcutaneous edema. IMPRESSION: Findings worrisome for septic arthritis and osteomyelitis at the right 1st metatarsophal angeal joint. Diffuse forefoot cellulitis with skin and subcutaneous fat edema Diffuse myositis with increased intrinsic signal of the flexor digitorum brevis muscles and intra oss eous muscles of the right forefoot TECHNICAL DOCUMENTATION: JOB ID: [id number] [email or web address]- All Rights Reserved
== END ==
LOC: RAD 06:49
PROVIDERS: ATTEND Nurse Practitioner Family
DX: E11.621 Type 2 diabetes mellitus with foot ulcer (principal); L97.512 Non-pressure chronic ulcer of other part of right foot with fat layer exposed

== ENCOUNTER 2016-10-25 15:33 | Emergency (ER) | payer MEDICAID, MEDICARE ==
--- NOTE | 2016-10-25 16:53 | ER Document Report ---
ED General <DILLAN ZABALA - Last Filed: 10/25/16 23:00> - General TRAVEL OUTSIDE OF THE [place] IN LAST 30 DAYS: No <LINDSAYMARLEEN BUNCHN - Last Filed: 10/26/16 07:11> - General Chief Complaint: Leg Pain Stated Complaint: LEG PAIN Time Seen by Provider: 10/25/16 15:57 - HPI Notes: Patient with h/o DM, pressure ulcers, HTN, Hypercholesterolemia, NH, CVA, CKD, PAD, COPD, A-fib, hypokalemia, and chronic anemia comes to the ED c/o infection to the right leg x3-4 weeks. Pt is accompanied by 2 of his friends. They were told by wound clinic to come to the ED for possible bone infection (from the non -healing ulcerations) as seen on their MRI 4 days ago. Pt/friends state that he was on antibiotics initially, but that he has not been on them over the last couple of weeks. He was scheduled for a pre-op tomorrow to have "arteries cleaned" next week. Pt states that he is still eating/drinking with no problems. His urinary habits and BM's have been regular. Pt states that he does not have any pain, but does have edema in both of his legs. He has not noticed any purulent discharge, but he has noticed some clear discharge. Denies any red streaks. Denies fever, URI, sore throat, cough, sob, wheeze, cp , palp, syncope, abd pain, n/v/d, dysuria. (GLO MONTOYA) - Related Data Allergies/Adverse Reactions: No Known Allergies Allergy (Verified 10/25/16 16:05) Past Medical History - Social History Smoking Status: Former Smoker Family History: Reviewed & Not Pertinent, CAD, Other - Past Medical History Cardiac Medical History: Reports: Hx Atrial Fibrillation, Hx Congestive Heart Failure - Systolic heart failure with a EF of 35%, Hx Coronary Artery Disease, Hx Heart Attack, Hx Hypercholesterolemia, Hx Hypertension Pulmonary Medical History: Reports: Hx COPD Denies: Hx Asthma, Hx Bronchitis, Hx Pneumonia Neurological Medical History: Reports: Hx Cerebrovascular Accident. Denies: Hx Seizures Endocrine Medical History: Reports: Hx Diabetes Mellitus Type 2 Musculoskeltal Medical History: Reports Hx Arthritis Psychiatric Medical History: Denies: Hx Depression Past Surgical History: Reports: Hx Cardiac Catheterization - stent 2009, Hx Cardiac Surgery - open heart, Hx Coronary Artery Bypass Graft, Hx Orthopedic Surgery - Hand and wrist surgery - Immunizations Hx Diphtheria, Pertussis, Tetanus Vaccination: Yes Hx Pneumococcal Vaccination: 05/01/09 <GLO MONTOYA - Last Filed: 10/26/16 07:11> Review of Systems <DILLAN ZABALA - Last Filed: 10/25/16 23:00> <GLO MONTOYA - Last Filed: 10/26/16 07:11> - Review of Systems Notes: REVIEW OF SYSTEMS: CONSTITUTIONAL : Denies fever, chills, or sweats. Denies recent illness. EENT: Denies eye, ear, throat, or mouth pain or symptoms. Denies nasal or sinus congestion or discharge. Denies throat, tongue, or mouth swelling or difficulty swallowing. CARDIOVASCULAR: Denies chest pain. Denies palpitations. RESPIRATORY: Denies cough, cold, or chest congestion. Denies shortness of breath, difficulty breathing, or wheezing. GASTROINTESTINAL: Denies abdominal pain or distention. Denies nausea, vomiting , or diarrhea. Denies blood in vomitus, stools, or per rectum. Denies black, tarry stools. Denies constipation. GENITOURINARY: Denies difficulty urinating, painful urination, burning, frequency, blood in urine, or discharge. MUSCULOSKELETAL: Denies back or neck pain or stiffness. SKIN: see hpi NEUROLOGICAL: Denies confusion or altered mental status. Denies passing out or loss of consciousness. Denies dizziness or lightheadedness. Denies headache. ALL OTHER SYSTEMS REVIEWED AND NEGATIVE. Dictation was performed using [employer] voice recognition software (GLO MONTOYA) Physical Exam <DILLAN ZABALA - Last Filed: 10/25/16 23:00> <GLO MONTOYA - Last Filed: 10/26/16 07:11> - Vital signs Vitals: Temp Pulse Resp BP Pulse Ox 98.3 F 63 24 H 142/63 H 94 10/25/16 15:56 10/25/16 15:56 10/25/16 15:56 10/25/16 15:56 10/25/16 15:56 Notes: PHYSICAL EXAMINATION: GENERAL: Well-appearing, well-nourished and in no acute distress. Sitting in WC NECK: Normal range of motion, supple without lymphadenopathy. no rigidity/ meningismus. LUNGS: Breath sounds clear to auscultation bilaterally and equal. No wheezes rales or rhonchi. HEART: IRR without murmurs, rubs, gallops. ABDOMEN: Soft, nontender, nondistended abdomen. No guarding, no rebound. No masses appreciated. Normal bowel sounds present. No CVA tenderness bilaterally. Musculoskeletal: FROM to passive/active to ankle/knee b/l. Strength 5+/5.. LROM to the phalanges due to swelling. Milagro neg b/l. Extremities: 1+ edema b/l LE. 1+ DP pulses b/l. Unable to palp DP b/l. Capillary refill less than 3 seconds. NEUROLOGICAL: Dec sensation to rt great toe prox to dorsal foot. PSYCH: Normal mood, normal affect. SKIN: Multiple Non-healing non-pressure ulcers noted to rt LE, 2 ulcerations to the 1st digit and 1 on the second. + clear discharge noted. + erythema to the phalanges and dorsal foot, primarily around digits 1-2. + mild tenderness. (GLO MONTOYA) Course - Laboratory Result Diagrams: 10/25/16 16:45 10/25/16 16:45 <DILLAN ZABALA - Last Filed: 10/25/16 23:00> - Laboratory Result Diagrams: 10/25/16 16:45 10/25/16 16:45 <GLO MONTOYA - Last Filed: 10/26/16 07:11> - Re-evaluation Re-evalutation: 10/25/16 19:00 Introduced to patient, resting quietly, no distress, no requests. 10/25/16 23:00 Friendly transport here to transfer pt to [facility]. Pt calm, denies requests. stable for transfer. (DILLAN ZABALA) 10/25/16 17:08 Patient is an afebrile, well-hydrated, 75yo male who presents with osteomyelitis , septic arthritis of the Rt 1st MTP jt with surrounding cellulitis and suspected myositis of the rt foot. Vitals are stable and no SIRS criteria are met at this time. Pt has an extensive medical history as noted in HPI and recent NSTEMI 3mos ago. Reviewed case with our Hospitalist Dr. Kahn. Dr. Kahn did evaluate the patient, and he stated that the surgeon said he will not be able to handle this case at [place] [facility] (because of his situation and chronic health conditions) and is recommending transfer to another facility. Dr. Porras also evaluated the patient. Communicated with [facility] who will accept the patient for transfer under care of the Hospitalist, Dr. Eng. Reviewed the risks/benefits with the patient of the transfer and the pt is in agreement with transfer to [facility] for further management. CBC, CMP, BCx2, ESR, and CRP have been ordered. Introduced, Omaira Porter PRIVATE INVESTIGATOR, to patient who will be taking over care/transfer. ( GLO MONTOYA) - Vital Signs Vital signs: Temp Pulse Resp BP Pulse Ox 98 F 75 23 H 133/80 H 93 10/25/16 23:00 10/25/16 23:00 10/25/16 23:00 10/25/16 23:00 10/25/16 23:00 - Laboratory Laboratory results interpreted by me: 10/25/16 10/25/16 10/25/16 16:45 16:45 20:26 RBC 3.49 L Hgb 10.0 L Hct 31.4 L MCHC 31.7 L RDW 19.7 H ESR 48 H Chloride 112 H Carbon Dioxide 16 L BUN 31 H Creatinine 1.29 H Est GFR (Non-Af Amer) 55 L POC Glucose 187 H Direct Bilirubin 0.6 H C-Reactive Protein 19.6 H Discharge <DILLAN ZABALA - Last Filed: 10/25/16 23:00> <GLO MONTOYA - Last Filed: 10/26/16 07:11> - Discharge Clinical Impression: Osteomyelitis Qualifiers: Osteomyelitis type: unspecified type Osteomyelitis location: other site Qualified Code(s): M86.9 - Osteomyelitis, unspecified Septic arthritis Qualifiers: Septic arthritis location: unspecified location Septic arthritis organism: due to unspecified organism Qualified Code(s): M00.9 - Pyogenic arthritis, unspecified Cellulitis Qualifiers: Site of cellulitis: other site Qualified Code(s): L03.818 - Cellulitis of other sites Myositis Qualifiers: Myositis type: other type Myositis location: foot Laterality: right Qualified Code(s): M60.871 - Other myositis, right ankle and foot Condition: Stable Disposition: [facility] Forms: Elevated Blood Pressure Referrals: JONATHON GALLAGHER PA-C [Primary Care Provider] - Follow up as needed
[2016-10-25 17:39] LABS: ABSOLUTE BASOPHILS # (AUTO) 0.1 10^3/uL (0.0-0.2); ABSOLUTE EOSINOPHILS # (AUTO) 0.2 10^3/uL (0.0-0.6); ABSOLUTE LYMPHOCYTES (AUTO) 0.7 10^3/uL (0.5-4.7); ABSOLUTE MONOCYTES (AUTO) 0.5 10^3/uL (0.1-1.4); ABSOLUTE NEUT (AUTO) 3.5 10^3/uL (1.7-8.2); ALANINE AMINOTRANSFERASE 26 U/L (21-72); ALKALINE PHOSPHATASE 115 U/L (38-126); ANION GAP 14 (5-19); ASPARTATE AMINO TRANSFERASE 23 U/L (17-59); BASOPHILS % (AUTO) 1.2 % (0-2); BILIRUBIN,DIRECT 0.6 mg/dL (0.0-0.4); BILIRUBIN,TOTAL 0.8 mg/dL (0.2-1.3); BLOOD UREA NITROGEN 31 mg/dL (7-20); C-REACTIVE PROTEIN 19.6 mg/L (<10.0); CALCIUM 9.5 mg/dL (8.4-10.2); CARBON DIOXIDE 16 mmol/L (22-30); CHLORIDE 112 mmol/L (98-107); CREATININE RESULT 1.29 mg/dL (0.52-1.25); EOSINOPHILS % (AUTO) 3.3 % (0-6); GLUCOSE 86 mg/dL (75-110); HEMATOCRIT 31.4 % (37.9-51.0); HGB HCT DIFFERENCE -1.4; LYMPHOCYTES % (AUTO) 14.9 % (13-45); MEAN CORPUSCULAR HEMOGLOBIN 28.5 pg (27.0-33.4); MEAN CORPUSCULAR HGB CONC 31.7 g/dL (32.0-36.0); MEAN CORPUSCULAR VOLUME 90 fl (80-97); MONOCYTES % (AUTO) 9.6 % (3-13); POTASSIUM 4.4 mmol/L (3.6-5.0); RED BLOOD COUNT 3.49 10^6/uL (4.35-5.55); RED CELL DISTRIBUTION WIDTH 19.7 % (11.5-14.0); SODIUM 141.5 mmol/L (137-145); TOTAL PROTEIN 7.7 g/dL (6.3-8.2); WHITE BLOOD COUNT 4.9 10^3/uL (4.0-10.5)
[2016-10-25 18:15] LABS: ERYTHROCYTE SEDIMENTATION RATE 48 mm/hr (0-20)
--- NOTE | 2016-10-25 18:28 | PDOC CONSULTATION ---
Consultation Consult Date: 10/25/16 Consult reason:: non healing leg wound, osteomyelitis and myositis History of Present Illness Admission Date/PCP: JONATHON GALLAGHER PA-C Patient complains of: pain and swelling in Rt leg History of Present Illness: LINDA WILLETT is a 75 year old male with known vascular disease, including cardiovascular disease with recent NSTEMI 06/2016, presents from the wound care clinic with a non-healing wound of the Right leg with ulcerations on the toes, weeping lesions of the anterior pre-tibia area getting worse over the last couple of weeks. he has sharp, stabbing pain in the toes and top of his foot that radiates all the way to the hip, constant, comes in waves of intensity, no exac or alleviating factors, asct'd with subjective fevers and chills. He has undergone topical care for the last 3 weeks but no oral abx. He underwent MRI as the wound simply wasn't progressing and unfortunately reported findings concerning for osteomyelitis and even more so shows findings of myositis in the muscles of the feet. He is also being evaluated by dr mondragon, vascular surgeon in [place] to try to restore flow for these non healing wounds. Past Medical History Cardiac Medical History: Reports: Atrial Fibrillation, Congestive Heart Failure - Systolic heart failure with a EF of 35%, Coronary Artery Disease, Myocardial Infarction, Hyperlipidema, Hypertension, Peripheral Vascular Disease Pulmonary Medical History: Reports: Chronic Obstructive Pulmonary Disease (COPD) Denies: Asthma, Bronchitis, Pneumonia Neurological Medical History: Denies: Seizures Endocrine Medical History: Reports: Diabetes Mellitus Type 2 Musculoskeltal Medical History: Reports: Arthritis Psychiatric Medical History: Denies: Depression Hematology: Reports: Anemia - Chronic disease Past Surgical History Past Surgical History: Reports: Cardiac Catheterization - stent 2009, Coronary Artery Bypass Graft, Orthopedic Surgery - Hand and wrist surgery Social History Information Source: Patient Smoking Status: Current Some Day Smoker Cigarettes Packs Per Day: 0.5 - smoked up to 4ppd for many years earlier in his life Frequency of Alcohol Use: None Hx Recreational Drug Use: No Hx Prescription Drug Abuse: No - Advance Directive Resuscitation Status: Full Code Family History Family History: Reviewed & Not Pertinent, CAD, Other Parental Family History Reviewed: Yes Children Family History Reviewed: Yes Sibling(s) Family History Reviewed.: Yes Medication/Allergy Home Medications: Atorvastatin Calcium [Lipitor 40 mg Tablet] 40 mg PO QHS 07/22/16 Dutasteride [Avodart] 0.5 mg PO DAILY 07/22/16 Fluticasone Propionate [Flonase Nasal [place] 50 Mcg/[place] 16 gm] 1 spray NASL DAILY 07/22/16 Fluticasone/Salmeterol [Advair 250-50 Diskus 28 dose] 1 puff IH BID 07/22/16 Furosemide [Lasix] 80 mg PO DAILY 07/22/16 Gabapentin [Neurontin 300 mg Capsule] 300 mg PO TID 07/22/16 Glipizide [Glucotrol 5 mg Tablet] 5 mg PO BID 07/22/16 Ipratropium/Albuterol Sulfate [Combivent Respimat Inhal [place]] 1 puff IN QID Lisinopril [Zestril] 20 mg PO DAILY 07/22/16 Metoprolol Tartrate [Lopressor 25 mg Tablet] 25 mg PO BID 07/22/16 Nitroglycerin [Nitrostat] 1 tab SL Q5M 07/22/16 Paroxetine HCl [Paxil] 10 mg PO DAILY 07/22/16 Polyethylene Glycol 3350 [Miralax Powder 17 gm/Packet] 1 packet PO DAILY Potassium Chloride [Klor-Con 10 Meq Tablet.sa] 10 meq PO DAILY 07/22/16 Rivaroxaban [Xarelto 15 mg Tablet] 15 mg PO DAILY 07/22/16 Allergies/Adverse Reactions: No Known Allergies Allergy (Verified 10/25/16 16:05) Review of Systems All systems: reviewed and no additional remarkable complaints except as stated - all systems reviewed, see HPI, remaining systems negative Physical Exam Vital Signs: Temp Pulse Resp BP Pulse Ox 98.3 F 63 24 H 142/63 H 94 10/25/16 15:56 10/25/16 15:56 10/25/16 15:56 10/25/16 15:56 10/25/16 15:56 General appearance: PRESENT: no acute distress, disheveled, obese, well- developed, well-nourished Head exam: PRESENT: atraumatic, normocephalic Eye exam: PRESENT: EOMI. ABSENT: conjunctival injection, scleral icterus Mouth exam: PRESENT: moist, neck supple, tongue midline Teeth exam: PRESENT: dental caries - severe, poor dentation Neck exam: PRESENT: full ROM. ABSENT: tracheal deviation Respiratory exam: PRESENT: clear to auscultation luis m. ABSENT: accessory muscle use Cardiovascular exam: PRESENT: irregular rhythm, systolic murmur - soft murmur at left 2nd intercostal. ABSENT: tachycardia Pulses: PRESENT: normal femoral pulses - normal post tib pulses but they fall off rapidly below that. ABSENT: normal dorsalis pedis pul - severely diminished Vascular exam: PRESENT: pallor - bilat lower exts GI/Abdominal exam: PRESENT: normal bowel sounds, soft. ABSENT: tenderness Extremities exam: PRESENT: +2 edema - woody, brawny edema R>L; weeping on the Rt Musculoskeletal exam: ABSENT: full ROM - limited ROM hips and knees due to mild contractures and severe OA Neurological exam: PRESENT: alert, awake, oriented to person, oriented to place , oriented to time Psychiatric exam: PRESENT: appropriate affect, normal mood Skin exam: PRESENT: mottled, pallor, rash - several purulent appearing shallow ulcers along the lateral aspect of the Rt pretibial area, tops of all toes with erythema. ABSENT: warm Results Laboratory Results: 10/25/16 16:45 10/25/16 16:45 10/25/16 10/25/16 16:45 16:45 WBC 4.9 RBC 3.49 L Hgb 10.0 L Hct 31.4 L MCV 90 MCH 28.5 MCHC 31.7 L RDW 19.7 H Plt Count 212 Seg Neutrophils % 71.0 Lymphocytes % 14.9 Monocytes % 9.6 Eosinophils % 3.3 Basophils % 1.2 Absolute Neutrophils 3.5 Absolute Lymphocytes 0.7 Absolute Monocytes 0.5 Absolute Eosinophils 0.2 Absolute Basophils 0.1 Sodium 141.5 Potassium 4.4 Chloride 112 H Carbon Dioxide 16 L Anion Gap 14 BUN 31 H Creatinine 1.29 H Est GFR ( Amer) > 60 Est GFR (Non-Af Amer) 55 L Glucose 86 Calcium 9.5 Total Bilirubin 0.8 AST 23 ALT 26 Alkaline Phosphatase 115 C-Reactive Protein 19.6 H Total Protein 7.7 Albumin 4.0 Assessment & Plan - Plan Summary Plan Summary: 1. osteomyelitis 2. myositis 3. severe PAD He needs to transfer to higher level of care for surgical debridement of his wounds. I spoke with our surgeon promotions associate who doesn't feel comfortable managing this patient here. I recommended transfer to [place] so his vascular surgeon can assist with his care. He will need comanagement of his ASCVD/CAD with recent stents, diabetes, infectious disease and will likely have complicated postop course. dr locke, ED will make arrangements for transfer.
[2016-10-25] MEDS ORDERED: METOPROLOL TARTRATE 25 MG TABLET PO ONE (21:25)
[2016-10-25] MEDS ORDERED: GLIPIZIDE 5 MG TABLET PO ONE (21:25)
[2016-10-25] MEDS ORDERED: ATORVASTATIN CALCIUM 40 MG TABLET PO ONE (21:27)
[2016-10-25] MEDS ORDERED: GABAPENTIN 300 MG CAPSULE PO ONE (21:27)
[2016-10-25 23:05] VITALS: BP 133/80
== END 2016-10-25 23:00 | disposition short-term general hospital (02) ==
LOC: ER 15:33
DX: M86.9 Osteomyelitis, unspecified (principal); M00.9 Pyogenic arthritis, unspecified; L03.818 Cellulitis of other sites; M60.871 Other myositis, right ankle and foot; M79.604 Pain in right leg; I48.91 Unspecified atrial fibrillation; I50.9 Heart failure, unspecified; I25.10 Atherosclerotic heart disease of native coronary artery without angina pectoris; E78.00 Pure hypercholesterolemia, unspecified; I11.0 Hypertensive heart disease with heart failure; J44.9 Chronic obstructive pulmonary disease, unspecified; E11.9 Type 2 diabetes mellitus without complications; Z86.73 Personal history of transient ischemic attack (TIA), and cerebral infarction without residual deficits; I25.2 Old myocardial infarction
CPT/HCPCS: 99284; 36415; 87040; 82962; 85025; 85652; 86140; 80053; A9270 ×3